=== PATIENT | female | born 1940 | race Caucasian/White ===

== ENCOUNTER 2019-09-26 22:54 | Observation (INO) | payer OTHER ==
[2019-09-26 23:37] LABS: Absolute Lymphocytes (CBC) 1.3 K/uL (0.7-4.9); Hematocrit 36.4 % (36.0-45.0); Lymphocytes % 21.2 % (15.3-44.8); MPV 7.7 fL (7.6-11.3); RBC Red Blood Cell Count 3.83 M/uL (3.86-4.86)
[2019-09-26 23:38] LABS: Protime INR 1.06
[2019-09-26 23:50] LABS: ALT/SGPT 23 U/L (12-78); AST/SGOT 25 U/L (15-37); Albumin 3.6 g/dL (3.4-5.0); Alkaline Phosphatase 73 U/L (45-117); BUN Blood Urea Nitrogen 11 mg/dL (7-18); Bicarbonate 27 mmol/L (21-32); Bilirubin Direct 0.2 mg/dL (0-0.2); Bilirubin Total 0.5 mg/dL (0.2-1.0); Glucose Level 80 mg/dL (74-106); Lipase 116 U/L (73-393); Magnesium 2.2 mg/dL (1.8-2.4); NT PRO-BNP 1595 pg/mL (<450); Potassium 3.6 mmol/L (3.5-5.1); Protein, Total 7.2 g/dL (6.4-8.2); Sodium Level 143 mmol/L (136-145); Troponin (Emerg Dept Use Only) < 0.02 ng/mL (0.0-0.045)
[2019-09-27] MEDS ORDERED: ASPIRIN 81 MG CHEWABLE TABLET ONE (00:14)
[2019-09-27] MEDS ORDERED: MORPHINE 2 MG/ML SYR ONE (00:15)
[2019-09-27] MEDS ORDERED: PANTOPRAZOLE 40 MG INJ ONE (00:15)
[2019-09-27 01:12] LABS: Urine Blood TRACE (NEG); Urine Glucose NEGATIVE (NEG); Urine Protein NEGATIVE (NEG); Urine pH 8.5 (5.0-7.0)
[2019-09-27] MEDS ORDERED: MORPHINE 4 MG/ML SYR IV PRN (02:33)
[2019-09-27] MEDS ORDERED: ACETAMINOPHEN 500 MG TAB PO PRN (02:33)
[2019-09-27] MEDS ORDERED: ALPRAZOLAM 0.25 MG TABLET PO PRN (02:33)
[2019-09-27] MEDS ORDERED: CEFTRIAXONE/SWI 1gm 1 GM/10 ML SYR ONE (02:37)
--- NOTE | 2019-09-27 02:42 | ER ---
Nurse's Notes [facility] Name: Marisela Sullivan Age: 79 yrs Sex: Female : 1940 Arrival Date: 09/26/2019 Time: 22:55 Bed 14 Private MD: Diagnosis: Chest pain, unspecified;Cholecystitis Presentation: 09/25 23:10 Chief complaint: Patient states: she began having pressure in her chest around 1900 aa1 tonight and it then moved to her diaphragm area and radiates to her back. Reports she has a hx of gallstones and is supposed to have it removed and is not sure if that's what causing it since she ate pizza tonight. Denies SOB or N/V. Coronavirus screen: The patient has NOT traveled to a country currently being monitored by the CDC within the last 14 days. Proceed with normal triage procedures. Ebola Screen: No symptoms or risks identified at this time. Initial Sepsis Screen: Does the patient meet any 2 criteria? No. Patient's initial sepsis screen is negative. Does the patient have a suspected source of infection? No. Patient's initial sepsis screen is negative. Risk Assessment: Do you want to hurt yourself or someone else? Patient reports no desire to harm self or others. Onset of symptoms was September 26, 2019 at 21:00. Care prior to arrival: None. Activity prior to arrival: None. 23:10 Method Of Arrival: Ambulatory aa1 23:10 Acuity: RIYA 3 aa1 Historical: - Allergies: 23:51 Norvasc; aa1 - Home Meds: 23:51 Advair Diskus 250-50 mcg/dose Inhl dsdv 1 puff 2 times per day [Active]; Eliquis Oral aa1 [Active]; verapamil 240 mg Oral TbER 1 tab twice a day [Active]; - PMHx: 23:51 Asthma; Atrial Fib; Hypertension; gallstones; COPD; aa1 - PSHx: 23:51 Hysterectomy; aa1 - Immunization history:: Flu vaccine is not up to date. - Social history:: Smoking status: Patient denies any tobacco usage or history of. Screenin:10 Abuse screen: Denies threats or abuse. Denies injuries from another. Nutritional aa1 screening: No deficits noted. Tuberculosis screening: No symptoms or risk factors identified. Fall Risk None identified. Assessment: 23:10 General: Appears in no apparent distress. comfortable, Behavior is calm, cooperative, aa1 appropriate for age. Pain: Complains of pain in diaphragm Pain radiates to back Pain currently is 7 out of 10 on a pain scale. Quality of pain is described as pressure, Pain began 3 hours ago. Is continuous. Neuro: Level of Consciousness is awake, alert, obeys commands, Oriented to person, place, time, situation, Moves all extremities. Full function Speech is normal. Cardiovascular: Reports chest pain, Denies diaphoresis, lightheadedness, nausea, palpitations, shortness of breath, Heart tones S1 S2 present Capillary refill < 3 seconds Patient's skin is warm and dry. Chest pain is located in epigastric area radiates back began 3 hours prior to arrival episodes are continuous. Respiratory: Airway is patent Respiratory effort is even, unlabored, Respiratory pattern is regular, symmetrical. GI: Patient currently denies diarrhea, nausea, vomiting. : No signs and/or symptoms were reported regarding the genitourinary system. EENT: No signs and/or symptoms were reported regarding the EENT system. Derm: Skin is intact, is healthy with good turgor, Skin is pink, warm \T\ dry. Musculoskeletal: Capillary refill < 3 seconds. 09/26 00:15 Reassessment: Patient appears in no apparent distress at this time. Patient and/or aa1 family updated on plan of care and expected duration. Pain level reassessed. Patient is alert, oriented x 3, equal unlabored respirations, skin warm/dry/pink. Awaiting test results. 01:10 Reassessment: Patient appears in no apparent distress at this time. Patient and/or aa1 family updated on plan of care and expected duration. Pain level reassessed. Patient is alert, oriented x 3, equal unlabored respirations, skin warm/dry/pink. Awaiting CT results Patient states feeling better. Patient states symptoms have improved. 02:12 Reassessment: Patient appears in no apparent distress at this time. Patient and/or aa1 family updated on plan of care and expected duration. Pain level reassessed. Patient is alert, oriented x 3, equal unlabored respirations, skin warm/dry/pink. Awaiting CT results. 03:00 Reassessment: Patient appears in no apparent distress at this time. Patient and/or aa1 family updated on plan of care and expected duration. Pain level reassessed. Patient is alert, oriented x 3, equal unlabored respirations, skin warm/dry/pink. Pt to be admitted to ER hold. 15:41 Reassessment: patient and family decided to go home because of insurance issue. dr brendon francis and dr keen are aware. Vital Signs: 09/25 23:10 BP 156 / 82; Pulse 77; Resp 20; Temp 98.2; Pulse Ox 100% on R/A; Weight 58.97 kg; aa1 Height 5 ft. 2 in. (157.48 cm); Pain 7/10; 23:45 BP 156 / 82 LA; mt 23:45 BP 152 / 82 RA; mt 0312 00:49 BP 131 / 71; Pulse 71; Resp 18; Pulse Ox 97% on R/A; aa1 01:10 BP 146 / 70; Pulse 81; Resp 20; Pulse Ox 97% on R/A; Pain 3/10; aa1 02:12 BP 143 / 59; Pulse 81; Resp 18; Pulse Ox 98% on R/A; Pain 0/10; aa1 03:00 BP 126 / 59; Pulse 66; Resp 18; Temp 97.9; Pulse Ox 97% on R/A; Pain 0/10; aa1 09/25 23:10 Body Mass Index 23.78 (58.97 kg, 157.48 cm) [facility] ED Course: 09/25 22:55 Patient arrived in ED. jg7 23:01 Patient placed in an exam room, on a stretcher. aa1 23:08 Hank Felix PA is PHCP. cp 23:08 Hank Renya MD is Attending Physician. cp 23:10 Patient maintains SpO2 saturation greater than 95% on room air. aa1 23:10 Patient has correct armband on for positive identification. Bed in low position. Call [facility] light in reach. campus monitor on. Pulse ox on. NIBP on. Warm blanket given. 23:29 Patti Jones, BRYNN is Primary Nurse. aa1 23:30 Missed attempt(s): 22 gauge in right antecubital area. mt 23:33 EKG done, by ED staff, reviewed by Hank Reyna MD. Inserted saline lock: 20 gauge in mt right antecubital area, using aseptic technique. Blood collected. 23:49 Triage completed. aa1 0312 02:40 Fer Max MD is Hospitalizing Provider. cp 03:00 No provider procedures requiring assistance completed. aa1 15:39 IV discontinued, intact, bleeding controlled, No redness/swelling at site. Pressure mg2 dressing applied. Administered Medications: 00:00 Drug: morphine 2 mg Route: IVP; Site: right antecubital; aa1 00:30 Follow up: Response: No adverse reaction; Pain is decreased; RASS: Alert and Calm (0) aa1 00:00 Drug: ProTONIX 40 mg Route: IVP; Site: right antecubital; aa1 01:00 Follow up: Response: No adverse reaction; Marked relief of symptoms aa1 02:38 Drug: Rocephin 1 grams Route: IV; Rate: calculated rate; Site: right antecubital; aa1 03:43 Follow up: IV Status: Completed infusion; IV Intake: 10ml aa1 05:48 Not Given (Patient Refused): Aspirin Chewable Tablet 324 mg PO once; 81 mg tablets x 4 aa1 Intake: 03:43 IV: 10ml; Total: 10ml. aa1 Outcome: 02:41 Decision to Hospitalize by Provider. cp 15:40 Discharged to home via wheelchair, with family. mg2 15:40 Condition: stable 15:40 Discharge instructions given to family, Instructed on discharge instructions, follow up and referral plans. medication usage, Demonstrated understanding of instructions, follow-up care, medications, Prescriptions given X 2. 15:42 Patient left the ED. mg2 Signatures: Patti Jones RN RN aa1 Hank Felix PA PA cp Thompson, Moriah ak Cam Kat RN RN mg2 Bonita Watt jg7 Corrections: (The following items were deleted from the chart) 05:47 00:00 Aspirin Chewable Tablet 324 mg PO aa1 aa1 15:40 03:00 Patient admitted, IV remains in place. aa1 mg2 : 03:00 Admitted to ER Hold. Please see [facility] for further documentation. aa1 mg2 15:41 03:00 Condition: stable aa1 mg2 15:41 03:00 Instructed on the need for admit, Demonstrated understanding of instructions, aa1 mg2
--- NOTE | 2019-09-27 02:42 | EDPHYS ---
Physician Documentation [facility] Name: Marisela Sullivan Age: 79 yrs Sex: Female : 1940 Arrival Date: 09/26/2019 Time: 22:55 Bed 14 Private MD: ED Physician Hank Reyna HPI: 09/25 23:25 This 79 yrs old Female presents to ER via Ambulatory with complaints of Chest cp Pain. 23:25 The patient or guardian reports chest pain that is located primarily in the substernal cp area. 23:25 Onset: at 19:00. Duration: The patient or guardian reports a single episode, that is cp still ongoing, but improving, pain now in epigastric lower chest area and radiates to back. Severity of pain: in the emergency department the pain has improved mildly. Historical: - Allergies: 23:51 Norvasc; aa1 - Home Meds: 23:51 Advair Diskus 250-50 mcg/dose Inhl dsdv 1 puff 2 times per day [Active]; Eliquis Oral aa1 [Active]; verapamil 240 mg Oral TbER 1 tab twice a day [Active]; - PMHx: 23:51 Asthma; Atrial Fib; Hypertension; gallstones; COPD; aa1 - PSHx: 23:51 Hysterectomy; aa1 - Immunization history:: Flu vaccine is not up to date. - Social history:: Smoking status: Patient denies any tobacco usage or history of. ROS: 23:35 Eyes: Negative for injury, pain, redness, and discharge. cp 23:35 Constitutional: Negative for body aches, chills, fever, poor PO intake. 23:35 ENT: Negative for drainage from ear(s), ear pain, sore throat, difficulty swallowing, difficulty handling secretions. 23:35 Cardiovascular: Positive for chest pain, Negative for edema, palpitations. 23:35 Respiratory: Negative for cough, shortness of breath, wheezing. 23:35 Abdomen/GI: Positive for abdominal pain, of the epigastric area, Negative for vomiting, diarrhea, constipation, black/tarry stool, rectal bleeding. 23:35 Back: Positive for radiated pain. 23:35 Neuro: Negative for altered mental status, headache, weakness. 23:35 All other systems are negative. Exam: 23:38 Constitutional: The patient appears in no acute distress, alert, awake, cp non-diaphoretic, non-toxic, well developed, well nourished. 23:38 Head/Face: Normocephalic, atraumatic. cp 23:38 Eyes: Periorbital structures: appear normal, Conjunctiva: normal, no exudate, no injection, Sclera: no appreciated abnormality, Lids and lashes: appear normal, bilaterally. 23:38 ENT: External ear(s): are unremarkable, Nose: is normal, Mouth: Lips: moist, Oral mucosa: pink and intact, moist, Posterior pharynx: is normal, airway is patent, no erythema, no exudate. 23:38 Neck: ROM/movement: is normal, is supple, without pain, no range of motions limitations, no nuchal rigidity. 23:38 Chest/axilla: Inspection: normal, Palpation: is normal, no crepitus, no tenderness. 23:38 Cardiovascular: Rate: normal, Rhythm: irregularly irregular, Edema: is not appreciated, JVD: is not appreciated. 23:38 Respiratory: the patient does not display signs of respiratory distress, Respirations: normal, no use of accessory muscles, no retractions, labored breathing, is not present, Breath sounds: are clear throughout, no decreased breath sounds, no stridor, no wheezing. 23:38 Abdomen/GI: Inspection: abdomen appears normal, Bowel sounds: active, all quadrants, Palpation: soft, in all quadrants, mild abdominal tenderness, in the epigastric area, rebound tenderness, is not appreciated, voluntary guarding, is elicited in the epigastric area. 23:38 Back: pain, that is mild, of the mid back area. 23:38 Skin: no rash present. 23:38 Neuro: Orientation: to person, place \T\ time. Mentation: is normal, Motor: moves all fours, strength is normal. Vital Signs: 23:10 BP 156 / 82; Pulse 77; Resp 20; Temp 98.2; Pulse Ox 100% on R/A; Weight 58.97 kg; aa1 Height 5 ft. 2 in. (157.48 cm); Pain 7/10; 23:45 BP 156 / 82 LA; mt 23:45 BP 152 / 82 RA; mt 03/12 00:49 BP 131 / 71; Pulse 71; Resp 18; Pulse Ox 97% on R/A; aa1 01:10 BP 146 / 70; Pulse 81; Resp 20; Pulse Ox 97% on R/A; Pain 3/10; aa1 02:12 BP 143 / 59; Pulse 81; Resp 18; Pulse Ox 98% on R/A; Pain 0/10; aa1 03:00 BP 126 / 59; Pulse 66; Resp 18; Temp 97.9; Pulse Ox 97% on R/A; Pain 0/10; aa1 03 23:10 Body Mass Index 23.78 (58.97 kg, 157.48 cm) aa MDM: 09/25 23:09 Patient medically screened. percy 23:35 Differential diagnosis: abnormal EKG, acute myocardial infarction, cholecystitis, cp Cholelithiasis gastritis, pancreatitis, pneumonia, pneumothorax, pulmonary embolus, stable angina, thoracic aortic disection, unstable angina. 09/26 02:45 Data reviewed: vital signs, nurses notes, lab test result(s), EKG, radiologic studies, cp CT scan, plain films, I have discussed the patient's presentation/case with the attending Emergency Department Physician; and as a result, I will admit patient. 02:45 The patient was given aspirin in the Emergency Department. cp 09/25 23:08 Order name: Basic Metabolic Panel cp 09/25 23:08 Order name: CBC with Diff cp 09/25 23:08 Order name: LFT's cp 09/25 23:08 Order name: Magnesium cp 09/25 23:08 Order name: NT PRO-BNP cp 09/25 23:08 Order name: PT-INR cp 09/25 23:08 Order name: Troponin (emerg Dept Use Only) cp 09/25 23:27 Order name: Lipase cp 09/25 23:41 Order name: CBC with Automated Diff; Complete Time: 00:19 EDMS 09/26 00:19 Interpretation: Normal except: RBC 3.83; EOSINOPHIL % 6.8. cp 09/25 23:41 Order name: Protime (+INR); Complete Time: 00:19 EDMS 09/25 23:50 Order name: Basic Metabolic Panel; Complete Time: 00:19 EDMS 09/25 23:50 Order name: Liver (Hepatic) Function; Complete Time: 00:19 EDMS 09/25 23:50 Order name: Troponin (Emerg Dept Use Only); Complete Time: 00:19 EDMS 09/26 00:19 Interpretation: Within normal limits: TROPED < 0.02. cp 09/25 23:50 Order name: NT PRO-BNP; Complete Time: 00:19 EDMS 09/25 23:08 Order name: XRAY Chest (1 view) cp 09/25 23:29 Order name: CT Aorta for Dissection cp 09/25 23:51 Order name: Magnesium; Complete Time: 00:19 EDMS 09/25 23:51 Order name: Lipase; Complete Time: 00:19 EDMS 09/26 00:39 Order name: Urine Dipstick--Ancillary (enter results) mw2 09/26 01:12 Order name: Urine Dipstick-Ancillary; Complete Time: 02:20 EDMS 09/26 02:20 Interpretation: Normal except: UBLD TRACE; UPH 8.5; UESTR 1+. cp 09/26 03:38 Order name: Troponin I; Complete Time: 11:51 EDMS 09/26 05:50 Order name: CBC with Automated Diff; Complete Time: 11:51 EDMS 09/26 06:01 Order name: Basic Metabolic Panel; Complete Time: 11:51 EDMS 09/26 06:01 Order name: Liver (Hepatic) Function; Complete Time: 11:51 EDMS 09/26 06:04 Order name: Protime (+INR); Complete Time: 11:51 EDMS 09/26 06:04 Order name: PTT, Activated Partial Thromb; Complete Time: 11:51 EDMS 09/26 08:10 Order name: RAD; Complete Time: 11:51 EDMS 09/26 10:02 Order name: Troponin (emerg Dept Use Only) mg2 09/26 10:37 Order name: Troponin (Emerg Dept Use Only); Complete Time: 11:51 EDMS 09/26 11:25 Order name: CT; Complete Time: 13:46 EDMS 09/25 23:08 Order name: EKG; Complete Time: 23:09 cp 09/25 23:08 Order name: Cardiac monitoring; Complete Time: 23:13 cp 09/25 23:08 Order name: EKG - Nurse/Tech; Complete Time: 23:13 cp 09/25 23:08 Order name: IV Saline Lock; Complete Time: 23:27 cp 03/11 23:08 Order name: Labs collected and sent; Complete Time: 23:27 cp 09/25 23:08 Order name: O2 Per Protocol; Complete Time: 23:13 cp 09/25 23:08 Order name: O2 Sat Monitoring; Complete Time: 23:13 cp 09/25 23:27 Order name: Blood Pressure Recheck: bilateral upper extremity; Complete Time: 23:45 cp 09/26 03:46 Order name: Misc. Order: stop eliquis; Complete Time: 03:47 cp Administered Medications: 00:00 Drug: morphine 2 mg Route: IVP; Site: right antecubital; aa1 00:30 Follow up: Response: No adverse reaction; Pain is decreased; RASS: Alert and Calm (0) aa1 00:00 Drug: ProTONIX 40 mg Route: IVP; Site: right antecubital; aa1 01:00 Follow up: Response: No adverse reaction; Marked relief of symptoms aa1 02:38 Drug: Rocephin 1 grams Route: IV; Rate: calculated rate; Site: right antecubital; aa1 03:43 Follow up: IV Status: Completed infusion; IV Intake: 10ml aa1 05:48 Not Given (Patient Refused): Aspirin Chewable Tablet 324 mg PO once; 81 mg tablets x 4 aa1 Disposition: 09/27 07:28 Co-signature as Attending Physician, Hank Reyna MD I agree with the assessment and percy plan of care. Disposition: 09/27/19 02:41 Hospitalization ordered by Fer Max for Inpatient Admission. Preliminary diagnosis are Chest pain, unspecified, Cholecystitis. - Bed requested for [facility] ER HOLD. - Status is Inpatient Admission. mg2 - Condition is Stable. - Problem is new. - Symptoms have improved. Signatures: Dispatcher [employer] Johana Salmon RN RN dw Patti Jones RN RN aa1 Hank Reyna MD MD cha Attema, Lee, RESEARCH EDITOR-C RESEARCH EDITOR-Cla1 Hank Felix PA PA cp Gardose, Michele, RN RN mg2 Corrections: (The following items were deleted from the chart) 09/26 00:19 00:19 Normal except: RBC 3.83. cp cp 02:52 02:41 Hospitalization Ordered by Fer Max MD for Inpatient Admission. Preliminary dw diagnosis is Chest pain, unspecified; Cholecystitis. Bed requested for Telemetry/MedSurg (Inpatient). Status is Inpatient Admission. Condition is Stable. Problem is new. Symptoms have improved. cp 06:50 05:47 Aspirin Chewable Tablet 324 mg PO once; 81 mg tablets x 4 ordered. aa1 cp 15:42 02:52 09/27/2019 02:41 Hospitalization Ordered by Fer Max MD for Inpatient mg2 Admission. Preliminary diagnosis is Chest pain, unspecified; Cholecystitis. Bed requested for [facility] ER HOLD. Status is Inpatient Admission. Condition is Stable. Problem is new. Symptoms have improved. dw
[2019-09-27] MEDS ORDERED: Levofloxacin500mg IV 500 MG/100 ML BAG IV SCH (03:00)
[2019-09-27 05:30] VITALS: BMI 23.0
[2019-09-27 05:41] LABS: Absolute Lymphocytes (CBC) 0.8 K/uL (0.7-4.9); Basophils % 0.6 % (0-1.3); Hematocrit 33.2 % (36.0-45.0); Lymphocytes % 12.1 % (15.3-44.8); MPV 7.7 fL (7.6-11.3); RBC Red Blood Cell Count 3.49 M/uL (3.86-4.86)
[2019-09-27 05:43] LABS: Protime INR 1.1
[2019-09-27 05:52] LABS: ALT/SGPT 54 U/L (12-78); AST/SGOT 77 U/L (15-37); Albumin 3.3 g/dL (3.4-5.0); Alkaline Phosphatase 81 U/L (45-117); BUN Blood Urea Nitrogen 9 mg/dL (7-18); Bicarbonate 27 mmol/L (21-32); Bilirubin Direct 0.2 mg/dL (0-0.2); Bilirubin Total 0.4 mg/dL (0.2-1.0); Glucose Level 91 mg/dL (74-106); Potassium 3.5 mmol/L (3.5-5.1); Protein, Total 6.4 g/dL (6.4-8.2); Sodium Level 141 mmol/L (136-145)
--- NOTE | 2019-09-27 07:10 | P.HP ---
Certification for Inpatient Patient admitted to: Inpatient With expected LOS: >2 Midnights Patient will require the following post-hospital care: None Practitioner: I am a practitioner with admitting privileges, knowledge of patient current condition, hospital course, and medical plan of care. Services: Services provided to patient in accordance with Admission requirements found in Title 42 Section 412.3 of the Code of Federal Regulations Patient History Date of Service: 09/27/19 Reason for admission: Chest pain rule out acute coronary syndrome; acute cholecystitis History of Present Illness: Patient is an 79 year female who came into the hospital with chest discomfort. Patient has a history of cholelithiasis and has been working up cardiac clearance with weight loss physician in [place]. She was scheduled to get an echocardiogram in a week. However she started having severe pain so she came into our ER. In the emergency room her workup revealed that she had findings of gallbladder wall distension, acute cholecystitis, gallstone at the neck of the gallbladder. She has a history of atrial fibrillation and she is taking Eliquis as her anticoagulant. She will probably need to be off of this for 3- 4 days prior to surgical intervention. At this time, will get Cardiology consultation for cardiac clearance. Will get General surgery consultation to arrange for laparoscopic cholecystectomy. In the meantime, will continue with IV antibiotic therapy and pain control. Monitor her labs closely. She does not have choly does a lithiasis. If her pain changes or her LFTs elevate we may need to get an MRCP at that time. Allergies amlodipine [From Norvas] Allergy (Verified 10/15/15 08:50) Nausea/Vomiting NKDA Allergy (Uncoded 08/16/15 12:59) Unknown norelco Allergy (Uncoded 03/28/16 06:45) Unknown Home Medications: Bimatoprost [Lumigan Opthalmic Drops] 1 drops OP DAILY 10/13/15 Cephalexin 250 mg PO TID 10/13/15 Fluticasone/Salmeterol [Advair 250-50 Diskus] 1 each IH BID 10/13/15 Verapamil HCl [Verapamil ER] 240 mg PO BID 10/13/15 Zolpidem Tartrate 10 mg PO BEDTIME 10/13/15 Amoxicillin/Potassium Clav [Augmentin 875-125 Tablet] 1 each PO BID #20 tablet 10/15/15 Docusate [Colace Cap] 100 mg PO DAILY #30 cap 10/15/15 Hydrocort Acetate Suppos [Anucort-Hc Suppository*] 25 mg SD DAILY #10 supp 10/14 Pantoprazole [Protonix Tab] 40 mg PO BID #60 tab 10/15/15 - Past Medical/Surgical History Has patient received pneumonia vaccine in the past: Yes Diabetic: No -: AFIB -: HTN -: ASTHMA -: COPD -: HYSTERECTOMY - Family History Mother Medical History: Cancer Notes: breast cancer Sister Medical History: Cancer Notes: ovarian cancer - Social History Smoking Status: Former smoker Alcohol use: No CD- Drugs: No Caffeine use: Yes Place of Residence: Home Review of Systems 10-point ROS is otherwise unremarkable Physical Examination - Vital Signs Temperature: 99 F Blood Pressure: 140/70 Pulse: 99 Respirations: 16 Pulse Ox (%): 100 - Physical Exam General: Alert, In no apparent distress, Oriented x3 HEENT: Atraumatic, PERRLA, Mucous membr. moist/pink, EOMI, Sclerae nonicteric Neck: Supple, 2+ carotid pulse no bruit, No LAD, Without JVD or thyroid abnormality Respiratory: Clear to auscultation bilaterally, Normal air movement Cardiovascular: No murmurs, Irregular heart rate/rhythm Gastrointestinal: Normal bowel sounds, Soft and benign, Non-distended, No rebound, No guarding, Tenderness Musculoskeletal: No clubbing, No swelling, No tenderness Integumentary: No rashes Neurological: Normal gait, Normal speech, Normal strength at 5/5 x4 extr, Normal tone, Sensation intact, Cranial nerves 3-12 intact, Normal affect Lymphatics: No axilla or inguinal lymphadenopathy - Studies Laboratory Data (last 24 hrs) 09/27/19 02:55: Troponin I < 0.02 09/26/19 23:27: Lipase Cancelled 09/26/19 23:25: PT 12.5, INR 1.06 09/26/19 23:25: WBC 6.2, Hgb 12.3, Hct 36.4, Plt Count 268 09/26/19 23:25: Sodium 143, Potassium 3.6, BUN 11, Creatinine 0.79, Glucose 80, Magnesium 2.2, Total Bilirubin 0.5, AST 25, ALT 23, Alkaline Phosphatase 73, Lipase 116 Assessment & Plan - Problems (Diagnosis) (1) History of atrial fibrillation Current Visit: Yes Status: Acute (2) Acute cholecystitis Current Visit: Yes Status: Acute (3) History of hypertension Current Visit: Yes Status: Acute (4) History of COPD Current Visit: Yes Status: Acute (5) History of asthma Current Visit: Yes Status: Acute - Plan 1. Continue with IV hydration 2. Continue with IV antibiotics 3. Continue with pain control 4. NPO 5. General surgery consultation; patient is on anti coagulation so will hold surgery for 3-4 days. She last took the Eliquis on September 24. At this time she has gone almost 36 hr without the Eliquis. We may be able to proceed with surgery Tuesday morning. 6. Serial H&H, and we will monitor CBC, BMP, LFTs and lipase along with electrolytes. 7. Cardiology consultation for cardiac clearance 8. Echocardiogram 9. GI and DVT prophylaxis Discharge Plan: Home Plan to discharge in: Greater than 2 days - Advance Directives Does patient have a Living Will: Yes Does patient have a Durable POA for Healthcare: No - Code Status/Comfort Care Code Status Assessed: Yes Code Status: Full Code Critical Care: No Time Spent Managing PTS Care (In Minutes): 45
[2019-09-27] MEDS ORDERED: MORPHINE 4 MG/ML SYR ONE (07:32)
[2019-09-27] MEDS ORDERED: METRONIDAZOLE 500mg IVPB 500 MG/100 ML BAG IV ONE ×2 (07:32→13:54)
[2019-09-27] MEDS: METRONIDAZOLE 500mg IVPB 500 MG/100 ML BAG IV SCH ×2 (08:00→12:00)
--- NOTE | 2019-09-27 08:07 | RAD REPORT ---
EXAM DESCRIPTION: Beatrice Single View09/26/2019 11:34 pm CLINICAL HISTORY: Chest pain COMPARISON: 2015 FINDINGS: The lungs appear clear of acute infiltrate. The heart is mildly to moderately enlarged IMPRESSION: No acute abnormalities displayed
--- NOTE | 2019-09-27 08:51 | EKG ---
Test Date: 2019-09-26 Test Time: 23:11:18 Laundry Machine Tender: BOBBI MEASUREMENT RESULTS: Intervals: Rate: 86 SC: QRSD: 80 QT: 296 QTc: 354 [place]: P: SC: QRS: 30 T: 259 INTERPRETIVE STATEMENTS: Atrial fibrillation with premature ventricular or aberrantly conducted complexes Nonspecific ST and T wave abnormality, probably digitalis effect Abnormal ECG Compared to ECG 03/28/2016 03:23:20 Ventricular premature complex(es) now present ST (T wave) deviation now present T-wave abnormality no longer present Electronically Signed On 09-27-19 08:50:22 CDT by Peewee Luis
[2019-09-27] MEDS ORDERED: ENOXAPARIN 40 MG/0.4 ML SQ SCH (09:00)
[2019-09-27] MEDS ORDERED: ASPIRIN EC 81 MG TAB PO SCH (09:00)
[2019-09-27] MEDS ORDERED: INFLUENZA VACCINE (for 3y+) 0.5 ML DOSE IMVAC ONE ×2 (09:00→15:03)
[2019-09-27] MEDS ORDERED: METOPROLOL TAR 50 MG TAB PO SCH (09:00)
[2019-09-27] MEDS ORDERED: METOPROLOL TAR 50 MG TAB ONE (10:37)
[2019-09-27] MEDS ORDERED: ASPIRIN EC 81 MG TAB PO ONE (10:37)
--- NOTE | 2019-09-27 10:47 | RAD REPORT ---
EXAM DESCRIPTION: CT - Angio Aorta For Dissection - 09/27/2019 6:30 am CLINICAL HISTORY: The patient is 79 years old and is Female; back pain;Chest pain TECHNIQUE: Axial computed tomographic angiography images of the chest, abdomen and pelvis with intra venous contrast. Sagittal and coronal reformatted images were created and reviewed. This CT exam was performed using one or more of the following dose reduction techniques: automated exposure cont rol, adjustment of the mA and/or kV according to patient size, and/or use of iterative reconstruction technique. MIP reconstructed images were created and reviewed. COMPARISON: No relevant prior studies available. FINDINGS: VASCULATURE: AORTA: No acute findings. No aortic aneurysm. No dissection. PULMONARY ARTERIES: There are no obvious filling defects identified within the pulmonary arterie s to suggest pulmonary embolism. GREAT VESSELS OF AORTIC ARCH: No acute findings. No dissection. No arterial occlusion or sig nificant stenosis. CELIAC TRUNK AND MESENTERIC ARTERIES: No acute findings. No occlusion or significant stenosis. RENAL ARTERIES: No acute findings. No occlusion or significant stenosis. ILIAC ARTERIES: No acute findings. No occlusion or significant stenosis. CHEST: LUNGS: Unremarkable. No mass. No consolidation. PLEURAL SPACE: Unremarkable. No significant effusion. No pneumothorax. HEART: The heart is enlarged, specifically the biatrial enlargement. No significant pericardia l effusion. ABDOMEN: LIVER: Unremarkable. No mass. GALLBLADDER AND BILE DUCTS: The gallbladder is distended with several calcified gallstones in th e neck of the gallbladder. Suggestion of mild pericholecystic inflammation is noted. No ductal dila tion. PANCREAS: Unremarkable. No ductal dilation. No mass. SPLEEN: Unremarkable. No splenomegaly. ADRENALS: Unremarkable. No mass. KIDNEYS AND URETERS: Left intrarenal calcifications are present. There is no hydronephrosis or h ydroureter of either kidney. Prominent bilateral renal pelves is noted. No obstructing renal or urete ral calculus is seen. No solid mass. STOMACH AND BOWEL: The stomach is well distended with food contents and air. The small bowel is normal in caliber. Stool is present throughout colon. Scattered colonic diverticula are noted without surrounding inflammation. There is no bowel obstruction. No mucosal thickening. PELVIS: APPENDIX: The appendix is normal in caliber without surrounding inflammation. BLADDER: Unremarkable. No mass. REPRODUCTIVE: The patient is status post hysterectomy. CHEST, ABDOMEN and PELVIS: INTRAPERITONEAL SPACE: Unremarkable. No significant fluid collection. No free air. BONES/JOINTS: Minimal degenerative change of the lower lumbar spine is present. No acute fract ure. No dislocation. SOFT TISSUES: Unremarkable. LYMPH NODES: Unremarkable. No enlarged lymph nodes. IMPRESSION: 1. No evidence of aortic aneurysm or dissection. 2. No evidence of pulmonary embolism. 3. Cholelithiasis with findings concerning for acute cholecystitis. Electronically signed by: Ellie Jimenez MD 09/27/2019 1:43 AM CDT Due to temporary technical issues with the PACS/Fluency reporting system, reports are being signed by the in house radiologist as a courtesy to ensure prompt reporting. The interpreting radiologist is f ully responsible for the content of the report.
--- NOTE | 2019-09-27 11:12 | P.DS ---
Admission Date: 09/27/19 Discharge Date: 09/27/19 Disposition: ROUTINE DISCHARGE Discharge Condition: FAIR Reason for Admission: Chest pain rule out acute coronary syndrome; acute cholecystitis Brief History of Present Illness: History of Present Illness: Patient is an 79 year female who came into the hospital with chest discomfort. Patient has a history of cholelithiasis and has been working up cardiac clearance with program counselor in [place]. She was scheduled to get an echocardiogram in a week. However she started having severe pain so she came into our ER. In the emergency room her workup revealed that she had findings of gallbladder wall distension, acute cholecystitis, gallstone at the neck of the gallbladder. She has a history of atrial fibrillation and she is taking Eliquis as her anticoagulant. She will probably need to be off of this for 3- 4 days prior to surgical intervention. At this time, will get Cardiology consultation for cardiac clearance. Will get General surgery consultation to arrange for laparoscopic cholecystectomy. In the meantime, will continue with IV antibiotic therapy and pain control. Monitor her labs closely. She does not have choly does a lithiasis. If her pain changes or her LFTs elevate we may need to get an MRCP at that time. Hospital Course: Patient admitted for chest pain as well as nausea vomiting, CT angio shows no evidence of aortic dissection but finding of cholelithiasis. Patient was ruled out for acute coronary syndrome with negative sets of cardiac enzymes. Surgery team was discussed with plan was for patient to a hold Eliquis for 3 days prior to surgery. However patient's family 1 radiograph patient his arms nor been accepted DM. Case management discuss with an advice patient insurance profile for male observation stay. Given the patient has been ruled out for acute coronary syndrome. It was felt no need for patient to stay in the hospital for the next 3 days but can be discharged follow up with surgery as outpatient as already scheduled for the laparoscopic cholecystectomy. Patient is tolerating p.o. well at this time Vital Signs/Physical Exam: Temp Pulse Resp BP Pulse Ox 99 F 89 16 141/56 H 98 09/27/19 08:00 09/27/19 08:00 09/27/19 08:00 09/27/19 08:00 09/27/19 08:00 General: Alert, In no apparent distress, Oriented x3 HEENT: Atraumatic, Normocephalic Neck: Supple, 2+ carotid pulse no bruit Respiratory: Clear to auscultation bilaterally, Normal air movement Cardiovascular: No edema, Normal pulses, Regular rate/rhythm, Normal S1 S2 Gastrointestinal: Normal bowel sounds, Soft and benign, Non-distended, No tenderness Neurological: Normal speech, Normal strength at 5/5 x4 extr Laboratory Data at Discharge: WBC 6.7 K/uL (4.3-10.9) 09/27/19 05:16 Hgb 11.1 g/dL (12.0-15.0) L 09/27/19 05:16 Hct 33.2 % (36.0-45.0) L 09/27/19 05:16 Plt Count 242 K/uL (152-406) 09/27/19 05:16 PT 12.9 SECONDS (9.5-12.5) H 09/27/19 05:16 INR 1.10 09/27/19 05:16 APTT 32.4 SECONDS (24.3-36.9) 09/27/19 05:16 Sodium 141 mmol/L (136-145) 09/27/19 05:16 Potassium 3.5 mmol/L (3.5-5.1) 09/27/19 05:16 BUN 9 mg/dL (7-18) 09/27/19 05:16 Creatinine 0.60 mg/dL (0.55-1.3) 09/27/19 05:16 Glucose 91 mg/dL (74-106) 09/27/19 05:16 Magnesium 2.2 mg/dL (1.8-2.4) 09/26/19 23:25 Total Bilirubin 0.4 mg/dL (0.2-1.0) 09/27/19 05:16 AST 77 U/L (15-37) H 09/27/19 05:16 ALT 54 U/L (12-78) 09/27/19 05:16 Alkaline Phosphatase 81 U/L (45-117) 09/27/19 05:16 Troponin I < 0.02 ng/mL (0.0-0.045) 09/27/19 02:55 Lipase Cancelled 09/26/19 23:27 Home Medications: Bimatoprost [Lumigan Opthalmic Drops*] 1 drops OP DAILY 10/13/15 Fluticasone/Salmeterol [Advair 250-50 Diskus] 1 each IH BID 10/13/15 Docusate [Colace Cap*] 100 mg PO DAILY #30 cap 10/15/15 Pantoprazole [Protonix Tab*] 40 mg PO BID #60 tab 10/15/15 Levofloxacin [Levaquin] 250 mg PO DAILY #7 tablet 09/27/19 metroNIDAZOLE [Metronidazole] 500 mg PO TID #15 tablet 09/27/19 New Medications: Levofloxacin [Levaquin] 250 mg PO DAILY #7 tablet metroNIDAZOLE [Metronidazole] 500 mg PO TID #15 tablet Physician Review: Patient Assessed, Agree with Above Assessment and Plan Time spent managing pt's care (in minutes): 35
[2019-09-27 13:53] VITALS: BP 117/90; TEMP 98
--- NOTE | 2019-09-27 15:17 | ECHO ---
HEIGHT: 5 ft 3 in WEIGHT: 130 lb 0 oz DATE OF STUDY: 08/29/[address]: Fer Max MD 2-DIMENSIONAL: YES M.MODE: YES DOPPLER: YES COLOR FLOW: YES TDS: NO PORTABLE: NO DEFINITY: NO BUBBLE STUDY: NO DIAGNOSIS: CHEST PAIN CARDIAC HISTORY: CATHERIZATION: NO SURGERY: NO PROSTHETIC VALVE: NO PACEMAKER: NO MEASUREMENTS (cm) DIASTOLIC (NORMALS) SYSTOLIC (NORMALS) IVSd 0.9 (0.6-1.2) LA Diam 4.3 (1.9-4.0) LVEF 75% LVIDd 4.3 (3.5-5.7) LVIDs 2.4 (2.0-3.5) %FS 43% LVPWd 1.0 (0.6-1.2) Ao Diam 3.6 (2.0-3.7) 2 DIMENSIONAL ASSESSMENT: RIGHT ATRIUM: NORMAL LEFT ATRIUM: DILATED RIGHT VENTRICLE: NORMAL LEFT VENTRICLE: NORMAL TRICUSPID VALVE: NORMAL MITRAL VALVE: MITRAL ANNULAR CALCIFICATION PULMONIC VALVE: NORMAL AORTIC VALVE: NORMAL PERICARDIAL EFFUSION: NONE AORTIC ROOT: NORMAL LEFT VENTRICULAR WALL MOTION: NORMAL. DOPPLER/COLOR FLOW: MILD TRICUSPID REGURGITATION. COMMENTS: MILD TRICUSPID REGURGITATION NORMAL RIGHT VENTRICULAR SYSTOLIC PRESSURE. MITRAL ANNULAR CALCIFICATION. NORMAL LEFT VENTRICULAR SIZE AND FUNCTION. TECHNOLOGIST: ELVA SONG
[2019-09-27 16:39] VITALS: O2SAT 97
--- NOTE | 2019-09-28 05:31 | CON ---
Date of Consultation: 09/27/2019 Reason For Consultation: Cardiac clearance for gallbladder surgery. History Of Present Illness: Ms. Sullivan is an 79-year-old white woman. She has had a history of hy pertension, atrial fibrillation, COPD, and asthma. She normally sees Dr. Rutledge in [place] for her c ardiac care and has had a negative stress test by him in the past. She came in with right-sided ches t pain radiating to the center of the chest without any nausea, vomiting, diaphoresis, PND, orthopnea , pedal edema, palpitations, or syncope. It is felt that this is related to cholecystitis as she phillips s have gallstone. Dr. Santacruz was consulted and I was asked by him to see her for cardiac clearance. The patient has atrial fibrillation and she has been taking Eliquis. Her last dose was yesterday. Eliquis has been held. Past Medical History: As stated above. Allergies: INCLUDE NORVASC. Medications At Home: Include , Protonix, and inhalers. Review of Systems: Negative. Social History: Negative. Family History: Noncontributory. Physical Examination: Vital Signs: She was in atrial fibrillation with heart rate of 89 with vital signs that were stable otherwise. She was afebrile. Rest of her examination reportedly normal. Diagnostic Data: Showed atrial fibrillation by EKG. Chest x-ray was negative. Her BNP was 1595. Impression And Plan: Atypical chest pain. I think this is related to her gallstones. Has had a neg ative stress test by Dr. Rutledge in the past. Dr. Max has ordered echocardiogram on her. We will see what that shows prior to making further decisions, but she is cleared from my standpoint to go for s urgery she waits at least 48 hours after her last Eliquis dose before surgery is performed . Her blood pressure and her asthma seem to be well controlled at this point. We will continue to f jeff. The elevated BNP is nonspecific and may be related to her chronic atrial fibrillation. I dis cussed the case further with Dr. Max and Dr. Santacruz. NB/MODL Voice ID: [id number] Report ID: [id number]
[2019-09-28] MEDS ORDERED: Levofloxacin500mg IV 500 MG/100 ML BAG IV SCH (06:00)
== END 2019-09-27 15:40 | disposition home or self-care (01) ==
LOC: ER 22:54 → INTOOBSV 09-27 03:13 → ERHOLD 09-27 03:13
PROVIDERS: ADMIT Hospitalist; ATTEND Internal Medicine
DX: R07.89 Other chest pain (principal); K80.00 Calculus of gallbladder with acute cholecystitis without obstruction; I11.9 Hypertensive heart disease without heart failure; I48.20 Chronic atrial fibrillation, unspecified; I07.1 Rheumatic tricuspid insufficiency; J44.9 Chronic obstructive pulmonary disease, unspecified; Z79.01 Long term (current) use of anticoagulants; Z79.51 Long term (current) use of inhaled steroids; Z79.899 Other long term (current) drug therapy; Z87.891 Personal history of nicotine dependence
CPT/HCPCS: 96365; 93005; 93306; 85025 ×2; 80048 ×2; 36415; 83735; 85610 ×2; 80076 ×2; 85730; 81003; 84484 ×3; 83690; 83880; 71275; 74175; 71045; 96375; 99285; Q9967; C9113; J2270; J0696; G0378 ×2; Q2035

== ENCOUNTER 2020-10-03 23:55 | Observation (INO) | payer OTHER ==
--- OUTSIDE RECORDS SUMMARY | 2020-10-03 23:58 | XMS REPORT | Continuity of Care Document ---
:1940 Author Organization [facility] t Address [address] [place] [address] Care Team Providers Name Role Phone JOSÉ Attending Clinician Unavailable BRIAN Attending Clinician Unavailable JOSÉ Admitting Clinician Unavailable Problems This patient has no known problems. Allergies, Adverse Reactions, Alerts This patient has no known allergies or adverse reactions. Medications This patient has no known medications. Procedures This patient has no known procedures. Encounters Start End Encounter Admission Attending Care Care Encounter Source Date/Time Date/Time Type Type Clinicians Facility Department ID 2019-10-15 2019-10-[address] [facility] [id number] [place] 00:00:00 00:00:00 FILI [address] 2019-05-08 2019-05-08 Outpatient [facility] [id number] 00:00:00 00:00:00 DENA [address] 2019-04-26 2019-04-26 Outpatient [facility] [id number] 00:00:00 00:00:[address] DENA [address] Results This patient has no known results.
[2020-10-04 00:44] LABS: Absolute Lymphocytes (CBC) 1.3 K/uL (0.7-4.9); Basophils % 0.7 % (0-1.3); Hematocrit 37.5 % (36.0-45.0); Lymphocytes % 16.8 % (15.3-44.8); MPV 8.1 fL (7.6-11.3); RBC Red Blood Cell Count 3.98 M/uL (3.86-4.86)
[2020-10-04 00:48] LABS: Protime INR 0.99
[2020-10-04 01:05] LABS: ALT/SGPT 22 U/L (12-78); AST/SGOT 22 U/L (15-37); Albumin 3.7 g/dL (3.4-5.0); Alkaline Phosphatase 69 U/L (45-117); BUN Blood Urea Nitrogen 13 mg/dL (7-18); Bicarbonate 26 mmol/L (21-32); Bilirubin Direct 0.1 mg/dL (0-0.2); Bilirubin Total 0.5 mg/dL (0.2-1.0); Glucose Level 89 mg/dL (74-106); Magnesium 2.4 mg/dL (1.8-2.4); NT PRO-BNP 1218 pg/mL (<450); Potassium 3.3 mmol/L (3.5-5.1); Protein, Total 6.8 g/dL (6.4-8.2); Sodium Level 144 mmol/L (136-145); Troponin (Emerg Dept Use Only) < 0.02 ng/mL (0.0-0.045)
[2020-10-04 02:10] LABS: Urine Blood TRACE (NEG); Urine Glucose NEGATIVE (NEG); Urine Protein NEGATIVE (NEG); Urine pH 7.5 (5.0-7.0)
--- NOTE | 2020-10-04 02:13 | P.HP ---
Certification for Inpatient Patient admitted to: Observation With expected LOS: <2 Midnights Patient will require the following post-hospital care: None Practitioner: I am a practitioner with admitting privileges, knowledge of patient current condition, hospital course, and medical plan of care. Services: Services provided to patient in accordance with Admission requirements found in Title 42 Section 412.3 of the Code of Federal Regulations <EssieeliuJulien - Last Filed: 10/04/20 02:10> Patient History Date of Service: 10/04/20 Primary Care Provider: PAULETTE Reason for admission: Chest pain History of Present Illness: 80-year-old female with history of chronic atrial fibrillation, hypertension, hyperlipidemia presents emergency department for chest pain. Patient reports the chest pain began this evening, describes pain as sharp/stabbing to the left anterior chest wall, nonradiating associated with some mild shortness of breath, dizziness, nausea. Patient reports that she has had this pain in the past intermittently. Last stress test approximately 2 years prior but normal at that time. Patient has never had a heart catheterization previously. Troponin negative, chest x-ray unremarkable. BNP with some elevation. Patient not short of breath at all, reports that she stopped taking all of her home medications approximately 2 months ago because she has had their making her more groggy and now she says she feels much better. Patient used to be on Eliquis but has stopped taking this as well. Patient chest pain free at this time, ED provider wishes to admit for further evaluation and management. - Past Medical/Surgical History Diabetic: No -: AFIB -: HTN -: ASTHMA -: COPD -: Hyperlipidemia -: HYSTERECTOMY -: Cholecystectomy Psychosocial/ Personal History: Patient is retired, lives at home with her family - Family History Mother -: Cancer Notes: breast cancer Sister -: Cancer Notes: ovarian cancer - Social History Smoking Status: Never smoker Alcohol use: No CD- Drugs: No Caffeine use: Yes <Julien Platt - Last Filed: 10/04/20 02:10> Date of Service: 10/04/20 <Pérez Russell - Last Filed: 10/04/20 20:04> Allergies No Known Allergies Allergy (Unverified 10/04/20 04:28) Home Medications: Apixaban [Eliquis] 5 mg PO BID 10/04/20 Losartan Potassium 50 mg PO DAILY 10/04/20 Nitrofuran Macro [Macrodantin*] 50 mg PO DAILY 10/04/20 Verapamil HCl [Verapamil ER] 240 mg PO BID 10/04/20 Review of Systems Cardiovascular: Chest Pain, Light Headedness, As per HPI Gastrointestinal: Nausea Genitourinary: Dysuria, Frequency <Julien Platt - Last Filed: 10/04/20 02:10> Physical Examination - Physical Exam General: Alert, In no apparent distress HEENT: Atraumatic, PERRLA, Mucous membr. moist/pink Neck: Supple, 2+ carotid pulse no bruit, No LAD Respiratory: Clear to auscultation bilaterally, Normal air movement Cardiovascular: Regular rate/rhythm, Normal S1 S2 Gastrointestinal: Normal bowel sounds, No tenderness Musculoskeletal: No tenderness Integumentary: No rashes Neurological: Normal speech, Normal strength at 5/5 x4 extr, Normal tone, Normal affect - Studies Laboratory Data (last 24 hrs) 10/04/20 00:15: PT 11.4, INR 0.99 10/04/20 00:15: WBC 7.50, Hgb 12.8, Hct 37.5, Plt Count 227 10/04/20 00:15: Sodium 144, Potassium 3.3 L, BUN 13, Creatinine 0.57, Glucose 89, Magnesium 2.4, Total Bilirubin 0.5, AST 22, ALT 22, Alkaline Phosphatase 69 <Julien Platt - Last Filed: 10/04/20 02:10> - Studies Laboratory Data (last 24 hrs) 10/04/20 00:15: PT 11.4, INR 0.99 10/04/20 00:15: WBC 7.50, Hgb 12.8, Hct 37.5, Plt Count 227 10/04/20 00:15: Sodium 144, Potassium 3.3 L, BUN 13, Creatinine 0.57, Glucose 89, Magnesium 2.4, Total Bilirubin 0.5, AST 22, ALT 22, Alkaline Phosphatase 69 <Pérez Russell - Last Filed: 10/04/20 20:04> Assessment and Plan - Plan Assessment Chest pain rule out ACS Chronic Atrial fibrillation Hypertension COPD Plan Chest pain rule out ACS: Trend troponins, monitor on telemetry. Cardiology consult in place. Continue daily aspirin. Patient used to take for rapid male but has discontinued this medication on her own, patient will need to see Cardiology and overmedication options as she does not like taking medications. Patient also reports some dysuria/frequency stated that she has chronic UTIs in the past and at 1 point had to take an antibiotic every day, patient believes this was Macrobid. Urinalysis pending, will follow. DVT prophylaxis Lovenox 30 mg subcutaneous once daily. Chronic Atrial fibrillation: Patient was previously on Eliquis, discontinued this on her own. Will need to review cardiology and patient to determine if she would benefit from this/if she is willing to take the. Hypertension: Blood pressure mildly elevated, will review previous home medications and restart as appropriate. COPD: Stable. Discharge Plan: Home Plan to discharge in: 24 Hours - Advance Directives Does patient have a Living Will: Yes Does patient have a Durable POA for Healthcare: No - Code Status/Comfort Care Code Status Assessed: Yes (DNR) Time Spent Managing Pts Care (In Minutes): 55 <Julien Platt - Last Filed: 10/04/20 02:10> - Plan chest pain, r/o ACS trend troponin, monitor on tele cardio consulted <Pérez Russell - Last Filed: 10/04/20 20:04>
[2020-10-04] MEDS ORDERED: ASPIRIN 81 MG CHEWABLE TABLET ONE (02:25)
[2020-10-04] MEDS ORDERED: POTASSIUM 25 MEQ EFFERV TAB ONE (02:40)
[2020-10-04 02:46] LABS: Urine Bacteria >50 /HPF (<20); Urine Mucus 1+ /HPF (NONE SEEN); Urine RBC <5 /HPF (NONE SEEN)
--- NOTE | 2020-10-04 02:58 | EDPHYS ---
Physician Documentation [facility] Name: Marisela Sullivan Age: 80 yrs Sex: Female : 1940 Arrival Date: 10/04/2020 Time: 00:00 Bed 17 Private MD: ED Physician Manuel Daley HPI: 10/04 01:09 This 80 yrs old Female presents to ER via EMS with complaints of Chest Pain. mh7 01:09 The patient or guardian reports chest pain that is located primarily in the anterior mh7 chest wall, left. Onset: today. The pain radiates to the left arm. Associated signs and symptoms: Pertinent positives: nausea. 01:10 Associated signs and symptoms: Pertinent negatives: abdominal pain, cough, diaphoresis, mh7 dizziness, headache, lower extremity pain, lower extremity swelling, lightheadedness, near syncope, palpitations, recent travel, shortness of breath, syncope, vomiting. The chest pain is described as a heaviness. Duration: The patient or guardian reports multiple episodes, that are intermittent, that wax and wane. Modifying factors: The symptoms are alleviated by nothing. the symptoms are aggravated by nothing. Severity of pain: At its worst the pain was moderate today, in the emergency department the pain has improved moderately. Historical: - Allergies: 00:05 Norvasc; rr5 - Home Meds: 00:05 Eliquis Oral [Active]; Nitrofurantoin Macrocrystal Oral [Active]; losartan oral oral rr5 [Active]; Verapamil Oral [Active]; - PMHx: 00:05 Asthma; Atrial Fib; COPD; Hypertension; GALLSTONES; rr5 - PSHx: 00:05 Hysterectomy; Cholecystectomy; rr5 - Immunization history:: Adult Immunizations not up to date. - Social history:: Smoking status: unknown. ROS: 01:10 Constitutional: Negative for fever, chills, and weight loss, Eyes: Negative for injury, mh7 pain, redness, and discharge, ENT: Negative for injury, pain, and discharge, Neck: Negative for injury, pain, and swelling, Respiratory: Negative for shortness of breath, cough, wheezing, and pleuritic chest pain, Back: Negative for injury and pain, : Negative for injury, bleeding, discharge, and swelling, MS/Extremity: Negative for injury and deformity, Skin: Negative for injury, rash, and discoloration, Neuro: Negative for headache, weakness, numbness, tingling, and seizure, Psych: Negative for depression, anxiety, suicide ideation, homicidal ideation, and hallucinations, Allergy/Immunology: Negative for hives, rash, and allergies, Endocrine: Negative for neck swelling, polydipsia, polyuria, polyphagia, and marked weight changes, Hematologic/Lymphatic: Negative for swollen nodes, abnormal bleeding, and unusual bruising. Exam: 01:10 Constitutional: This is a well developed, well nourished patient who is awake, alert, mh7 and in no acute distress. Head/Face: Normocephalic, atraumatic. Eyes: Pupils equal round and reactive to light, extra-ocular motions intact. Lids and lashes normal. Conjunctiva and sclera are non-icteric and not injected. Cornea within normal limits. Periorbital areas with no swelling, redness, or edema. Neck: Trachea midline, no thyromegaly or masses palpated, and no cervical lymphadenopathy. Supple, full range of motion without nuchal rigidity, or vertebral point tenderness. No Meningismus. Chest/axilla: Normal chest wall appearance and motion. Nontender with no deformity. No lesions are appreciated. Cardiovascular: Regular rate and rhythm with a normal S1 and S2. No gallops, murmurs, or rubs. Normal PMI, no JVD. No pulse deficits. Respiratory: Lungs have equal breath sounds bilaterally, clear to auscultation and percussion. No rales, rhonchi or wheezes noted. No increased work of breathing, no retractions or nasal flaring. Abdomen/GI: Soft, non-tender, with normal bowel sounds. No distension or tympany. No guarding or rebound. No evidence of tenderness throughout. Back: No spinal tenderness. No costovertebral tenderness. Full range of motion. Skin: Warm, dry with normal turgor. Normal color with no rashes, no lesions, and no evidence of cellulitis. MS/ Extremity: Pulses equal, no cyanosis. Neurovascular intact. Full, normal range of motion. Neuro: Awake and alert, GCS 15, oriented to person, place, time, and situation. Cranial nerves II-XII grossly intact. Motor strength 5/5 in all extremities. Sensory grossly intact. Cerebellar exam normal. Normal gait. Psych: Awake, alert, with orientation to person, place and time. Behavior, mood, and affect are within normal limits. Vital Signs: 00:00 BP 162 / 99; Pulse 88; Resp 16; Temp 97.5; Pulse Ox 99% ; Weight 52.62 kg; Height 5 ft. rr5 2 in. (157.48 cm); Pain 0/10; 00:39 BP 151 / 78; Pulse 80; Resp 18; Pulse Ox 100% on R/A; mg2 02:24 BP 139 / 84; Pulse 72; Resp 18; Pulse Ox 97% on R/A; mg2 03:20 BP 139 / 80; Pulse 73; Resp 18; Temp 98; Pulse Ox 98% on R/A; mg2 00:00 Body Mass Index 21.22 (52.62 kg, 157.48 cm) rr5 MDM: 02:56 Differential diagnosis: abnormal EKG, acute myocardial infarction, acute pericarditis, mh7 anxiety, coronary artery disease chest wall pain, congestive heart failure costochondritis, pleurisy, pneumonia. HEART Score: History: Moderately Suspicious (1), ECG: Non specific repolarization disturbance / LBTB / PM (1), Age: > or = 65 years (2), Risk Factors: 1 or 2 risk factors (1), [Hypertension] Troponin: < or = 1 x Normal Limit (0), Total Score = 5. Data reviewed: vital signs, nurses notes, lab test result(s), cardiac enzymes, CBC, electrolytes, EKG, radiologic studies, plain films. Data interpreted: Pulse oximetry: on room air is 97 %. Interpretation: normal. Counseling: I had a detailed discussion with the patient and/or guardian regarding: the historical points, exam findings, and any diagnostic results supporting the discharge/admit diagnosis, the presence of at least one elevated blood pressure reading (>120/80) during this emergency department visit, lab results, radiology results, the need for further work-up and treatment in the hospital. 02:58 Patient medically screened. mh7 10/04 00:02 Order name: Basic Metabolic Panel; Complete Time: 02:05 mg2 10/04 00:02 Order name: CBC with Diff; Complete Time: 02:05 mg2 10/04 00:02 Order name: LFT's; Complete Time: 02:05 mg2 10/04 00:02 Order name: Magnesium; Complete Time: 02:05 mg2 10/04 00:02 Order name: NT PRO-BNP; Complete Time: 02:05 mg2 10/04 00:02 Order name: PT-INR; Complete Time: 02:05 mg2 10/04 00:02 Order name: Troponin (emerg Dept Use Only); Complete Time: 02:05 mg2 10/04 00:02 Order name: XRAY Chest (1 view) mg2 10/04 01:49 Order name: COVID-19 : Document "Date of Symptom Onset" if Symptomatic. mg2 10/04 02:08 Order name: Urine Dipstick--Ancillary (enter results); Complete Time: 02:18 tt3 10/04 02:08 Order name: Urine Microscopic Only; Complete Time: 02:55 tt3 10/04 03:19 Order name: SARS-COV-2 RT PCR EDMS 10/04 00:02 Order name: EKG; Complete Time: 00:03 mg2 10/04 00:02 Order name: Cardiac monitoring; Complete Time: 00:38 mg2 10/04 00:02 Order name: EKG - Nurse/Tech; Complete Time: 00:38 mg2 10/04 00:02 Order name: IV Saline Lock; Complete Time: 00:38 mg2 10/04 00:02 Order name: Labs collected and sent; Complete Time: 00:38 mg2 10/04 00:02 Order name: O2 Per Protocol; Complete Time: 00:38 mg2 10/04 00:02 Order name: O2 Sat Monitoring; Complete Time: 00:38 mg2 10/04 01:54 Order name: Urine Dipstick-Ancillary (obtain specimen); Complete Time: 02:24 mg2 Administered Medications: 02:00 Drug: Aspirin Chewable Tablet 324 mg Route: PO; mg2 03:35 Follow up: Response: No adverse reaction mg2 02:25 Drug: Potassium Effervescent Tablet 50 mEq Route: PO; mg2 03:35 Follow up: Response: No adverse reaction mg2 03:02 Drug: Rocephin (cefTRIAXone) 1 grams Route: IV; Rate: calculated rate; Site: left mg2 forearm; 03:34 Follow up: Response: No adverse reaction; IV Status: Completed infusion mg2 Disposition: 10/04/20 02:58 Hospitalization ordered by Pérez Russell for Observation. Preliminary diagnosis is Chest pain, unspecified. - Bed requested for Telemetry/MedSurg (observation). - Status is Observation. mg2 - Condition is Stable. - Problem is new. - Symptoms have improved. Signatures: Dispatcher [employer] EDJulien Lozoya, ADVANCED NURSING PROFESSOR-C ADVANCED NURSING PROFESSOR-Cla1 Shraddha Zuñiga, RN RN cg Cam Kat, RN RN mg2 Pérez Talbert, BRYNN RN rr5 Manuel Daley MD MD 7 Corrections: (The following items were deleted from the chart) 03:36 02:58 Hospitalization Ordered by Pérez Russell MD for Observation. Preliminary cg diagnosis is Chest pain, unspecified. Bed requested for Telemetry/MedSurg (observation). Status is Observation. Condition is Stable. Problem is new. Symptoms have improved. 7 03:46 03:36 10/04/2020 02:58 Hospitalization Ordered by Pérez Russell MD for Observation. mg2 Preliminary diagnosis is Chest pain, unspecified. Bed requested for Telemetry/MedSurg (observation). Status is Observation. Condition is Stable. Problem is new. Symptoms have improved. cg
--- NOTE | 2020-10-04 02:58 | ER ---
Nurse's Notes [facility] Name: Marisela Sullivan Age: 80 yrs Sex: Female : 1940 Arrival Date: 10/04/2020 Time: 00:00 Bed 17 Private MD: Diagnosis: Chest pain, unspecified Presentation: 10/04 00:00 Chief complaint: EMS states: complaining of nausea, left sided chest pain like a rr5 stabbing pain on and off. but now she feels better she stopped her medication for 2 months. ECG showed afib. Coronavirus screen: Client denies travel out of the [place] in the last 14 days. At this time, the client does not indicate any symptoms associated with coronavirus-19. Ebola Screen: Patient negative for fever greater than or equal to 101.5 degrees Fahrenheit, and additional compatible Ebola Virus Disease symptoms Patient denies exposure to infectious person. Patient denies travel to an Ebola-affected area in the 21 days before illness onset. Initial Sepsis Screen: Does the patient meet any 2 criteria? No. Patient's initial sepsis screen is negative. Does the patient have a suspected source of infection? No. Patient's initial sepsis screen is negative. Risk Assessment: Do you want to hurt yourself or someone else? Patient reports no desire to harm self or others. Onset of symptoms was October 01, 2020. 00:00 Method Of Arrival: EMS: [facility] rr5 00:00 Acuity: RIYA 3 rr5 Historical: - Allergies: 00:05 Norvasc; rr5 - Home Meds: 00:05 Eliquis Oral [Active]; Nitrofurantoin Macrocrystal Oral [Active]; losartan oral oral rr5 [Active]; Verapamil Oral [Active]; - PMHx: 00:05 Asthma; Atrial Fib; COPD; Hypertension; GALLSTONES; rr5 - PSHx: 00:05 Hysterectomy; Cholecystectomy; rr5 - Immunization history:: Adult Immunizations not up to date. - Social history:: Smoking status: unknown. Screenin:05 Abuse screen: Denies threats or abuse. Denies injuries from another. Nutritional rr5 screening: No deficits noted. Tuberculosis screening: No symptoms or risk factors identified. Fall Risk IV access (20 points). Total Wiley Fall Scale indicates No Risk (0-24 pts). Assessment: 00:42 General: Appears in no apparent distress. comfortable, Behavior is calm, cooperative. mg2 Pain: Complains of pain in chest Pain does not radiate. Quality of pain is described as aching, Pain began gradually. Neuro: Level of Consciousness is awake, alert, obeys commands, Oriented to person, place, time, situation. Cardiovascular: Capillary refill < 3 seconds Patient's skin is warm and dry. Respiratory: Airway is patent Respiratory effort is even, unlabored, Respiratory pattern is regular, symmetrical. GI: No signs and/or symptoms were reported involving the gastrointestinal system. : No signs and/or symptoms were reported regarding the genitourinary system. EENT: No signs and/or symptoms were reported regarding the EENT system. Derm: Skin is intact, is healthy with good turgor, Skin is pink, warm \T\ dry. normal. Musculoskeletal: Circulation, motion, and sensation intact. Capillary refill < 3 seconds. 02:23 Reassessment: Patient appears in no apparent distress at this time. Patient and/or mg2 family updated on plan of care and expected duration. Pain level reassessed. Patient is alert, oriented x 3, equal unlabored respirations, skin warm/dry/pink. WILLIAM Victoria came and talked to the patient about admission. Vital Signs: 00:00 BP 162 / 99; Pulse 88; Resp 16; Temp 97.5; Pulse Ox 99% ; Weight 52.62 kg; Height 5 ft. rr5 2 in. (157.48 cm); Pain 0/10; 00:39 BP 151 / 78; Pulse 80; Resp 18; Pulse Ox 100% on R/A; mg2 02:24 BP 139 / 84; Pulse 72; Resp 18; Pulse Ox 97% on R/A; mg2 03:20 BP 139 / 80; Pulse 73; Resp 18; Temp 98; Pulse Ox 98% on R/A; mg2 00:00 Body Mass Index 21.22 (52.62 kg, 157.48 cm) rr5 ED Course: 00:00 Patient arrived in ED. rr5 00:01 Cam Kat, RN is Primary Nurse. mg2 00:03 Triage completed. rr5 00:05 Arm band placed on right wrist. rr5 00:05 Patient has correct armband on for positive identification. Placed in gown. Bed in low rr5 position. Call light in reach. Side rails up X2. color television console monitor on. Pulse ox on. NIBP on. 00:06 Maintain EMS IV. Dressing intact. Good blood return noted. Site clean \T\ dry. Gauge \T\ rr 5 site: g20 left ac. 00:34 Manuel Daley MD is Attending Physician. [facility] 00:39 No provider procedures requiring assistance completed. Inserted saline lock: 20 gauge mg2 in left forearm, using aseptic technique. Blood collected. 00:43 Patient maintains SpO2 saturation greater than 95% on room air. mg2 00:57 XRAY Chest (1 view) In Process Unspecified. EDMS 02:25 COVID swab sent to lab. Patient admitted, IV remains in place. mg2 02:58 Pérez Russell MD is Hospitalizing Provider. 7 Administered Medications: 02:00 Drug: Aspirin Chewable Tablet 324 mg Route: PO; mg2 03:35 Follow up: Response: No adverse reaction mg2 02:25 Drug: Potassium Effervescent Tablet 50 mEq Route: PO; mg2 03:35 Follow up: Response: No adverse reaction mg2 03:02 Drug: Rocephin (cefTRIAXone) 1 grams Route: IV; Rate: calculated rate; Site: left mg2 forearm; 03:34 Follow up: Response: No adverse reaction; IV Status: Completed infusion mg2 Outcome: 02:58 Decision to Hospitalize by Provider. 7 03:45 Admitted to Med/surg accompanied by nurse, via wheelchair, room 228, with chart, Report mg2 called to BRYNN Packer 03:45 Condition: stable 03:45 Instructed on the need for admit, Demonstrated understanding of instructions. 03:46 Patient left the ED. mg2 Signatures: Dispatcher [employer] EDKS Cam Kat, BRYNN RN mg2 Pérez Talbert RN RN rr5 Manuel Daley MD MD 7
[2020-10-04] MEDS ORDERED: CEFTRIAXONE/SWI 1gm 1 GM/10 ML SYR ONE (03:21)
[2020-10-04 03:57] VITALS: O2SAT 98
[2020-10-04] MEDS ORDERED: ACETAMINOPHEN 500 MG TAB PO PRN (04:21)
[2020-10-04] MEDS ORDERED: ONDANSETRON 4 MG/2 ML VIAL IV PRN (04:21)
[2020-10-04 04:31] VITALS: BMI 21.2
[2020-10-04] MEDS ORDERED: ALBUTEROL 2.5 MG/3 ML NEB SOL NEB PRN (04:48)
[2020-10-04 06:55] LABS: BUN Blood Urea Nitrogen 13 mg/dL (7-18); Bicarbonate 30 mmol/L (21-32); Glucose Level 90 mg/dL (74-106); HDL Cholesterol 62 mg/dL (40-60); LDL Cholesterol, Calculated 83 (<130); Sodium Level 145 mmol/L (136-145); Troponin I < 0.02 ng/mL (0.0-0.045)
[2020-10-04] MEDS ORDERED: ASPIRIN EC 81 MG TAB PO SCH (09:00)
[2020-10-04] MEDS ORDERED: CEFTRIAXONE 1 GM/NS 50 ML 1 GM/50 ML BAG IV SCH (09:00)
[2020-10-04] MEDS ORDERED: ENOXAPARIN 30 MG/0.3 ML SQ SCH (09:00)
[2020-10-04 11:15] LABS: C.diff Antigen/Toxin Ag neg : Tox neg (NEG : NEG)
--- NOTE | 2020-10-04 12:58 | RAD REPORT ---
EXAM DESCRIPTION: Chest Single View 10/04/2020 12:59 AM CDT CLINICAL HISTORY: 80 years, Female, CHEST PAIN COMPARISON: 09/26/2019, previous CTA performed 09/27/2019 FINDINGS: Single view of the chest was obtained portable. Prior films were compared. External EKG le ads within the [id number] limits diagnosis. The heart is prominent. The thoracic aorta is mildly tortuous with intimal calcification. The pulmonary vasculature is normal distribution. Costophreni c angles are sharp. No areas of consolidation or masses are seen. The rest of the soft tissue and bony structures demonstrate to be unremarkable. IMPRESSION: Cardiomegaly. No consolidation or masses are seen. No significant interval change Electronically signed by: Sonido Tavarez MD 10/04/2020 1:00 AM CDT Due to temporary technical issues with the PACS/Fluency reporting system, reports are being signed by the in house radiologist without review as a courtesy to ensure prompt reporting. The interpreting r adiologist is fully responsible for the content of the report.
[2020-10-04 17:38] VITALS: BP 159/75; TEMP 97.5
--- NOTE | 2020-10-04 20:07 | P.DS ---
Admission Date: 10/04/20 Discharge Date: 10/04/20 Primary Care Provider: PAULETTE Disposition: ROUTINE DISCHARGE Discharge Condition: GOOD Reason for Admission: Chest pain Consultations: Cardio - Dr. Sam Procedures: Problem List: Chest pain rule out ACS Chronic Atrial fibrillation, not on anticoagulation Hypertension COPD Brief History of Present Illness: 80yo F, PMH: chronic Afib, HTN, HLD, presented to emergency department for chest pain. Patient reports the chest pain began this evening, describes pain as jean-pierre p/stabbing to the left anterior chest wall, nonradiating associated with some mild shortness of breath, dizziness, nausea. Patient reports that she has had this pain in the past intermittently. Last stress test approximately 2 years prior but normal at that time. Patient has never had a heart catheterization previously. Troponin negative, chest x-ray unremarkable. BNP with some elevation. Patient not short of breath at all, reports that she stopped taking all of her home medications approximately 2 months ago because she has had their making her more groggy and now she says she feels much better. Patient used to be on Eliquis but has stopped taking this as well. Patient chest pain free at this time, ED provider wishes to admit for further evaluation and management. Hospital Course: Troponins were trended and remained negative x3. She did not have any recurrence of her chest pain during her hospitalization. There were no abnormal events noted on telemetry. Cardiology was consulted and recommended no further evaluation while inpatient at this time. Patient is to follow up with cardiology for an outpatient stress test. Patient was advised to restart her home medications as previously prescribed, especially her Eliquis. Vital Signs/Physical Exam: Physical Exam General: Alert, In no apparent distress HEENT: Atraumatic, PERRLA, Mucous membr. moist/pink Neck: Supple, 2+ carotid pulse no bruit, No LAD Respiratory: Clear to auscultation bilaterally, Normal air movement Cardiovascular: Regular rate/rhythm, Normal S1 S2 Gastrointestinal: Normal bowel sounds, No tenderness Musculoskeletal: No tenderness Integumentary: No rashes Neurological: Normal speech, Normal strength at 5/5 x4 extr, Normal tone, Normal affect Temp Pulse Resp BP Pulse Ox 97.5 F 95 H 20 159/75 H 97 10/04/20 16:00 10/04/20 16:00 10/04/20 16:00 10/04/20 16:00 10/04/20 16:00 Laboratory Data at Discharge: WBC 7.50 K/uL (4.3-10.9) 10/04/20 00:15 Hgb 12.8 g/dL (12.0-15.0) 10/04/20 00:15 Hct 37.5 % (36.0-45.0) 10/04/20 00:15 Plt Count 227 K/uL (152-406) 10/04/20 00:15 PT 11.4 SECONDS (9.5-12.5) 10/04/20 00:15 INR 0.99 10/04/20 00:15 Sodium 145 mmol/L (136-145) 10/04/20 06:18 Potassium 4.0 mmol/L (3.5-5.1) 10/04/20 06:18 BUN 13 mg/dL (7-18) 10/04/20 06:18 Creatinine 0.59 mg/dL (0.55-1.3) 10/04/20 06:18 Glucose 90 mg/dL (74-106) 10/04/20 06:18 Magnesium 2.4 mg/dL (1.8-2.4) 10/04/20 00:15 Total Bilirubin 0.5 mg/dL (0.2-1.0) 10/04/20 00:15 AST 22 U/L (15-37) 10/04/20 00:15 ALT 22 U/L (12-78) 10/04/20 00:15 Alkaline Phosphatase 69 U/L (45-117) 10/04/20 00:15 Troponin I < 0.02 ng/mL (0.0-0.045) 10/04/20 11:02 Triglycerides 69 mg/dL (<150) 10/04/20 06:18 Cholesterol 159 mg/dL (<200) 10/04/20 06:18 HDL Cholesterol 62 mg/dL (40-60) H 10/04/20 06:18 Cholesterol/HDL Ratio 2.56 10/04/20 06:18 Home Medications: RX: Apixaban [Eliquis] 5 mg PO BID 10/04/20 RX: Losartan Potassium 50 mg PO DAILY 10/04/20 RX: Nitrofuran Macro [Macrodantin*] 50 mg PO DAILY 10/04/20 RX: Verapamil HCl [Verapamil ER] 240 mg PO BID 10/04/20 Physician Discharge Instructions: Your chest pain who was evaluated by EKG and troponins, which were normal and did not show any signs of heart damage/ischemia. It is recommended that he follow up with Cardiology in the next few weeks to undergo a cardiac stress test. Please call the office to schedule this in the next few days. Please resume her home medications as previously prescribed, further discuss with your PCP. The urine sample you provided did have some bacteria, however, was not the best sample. You did not have any other signs of infection, so you are not discharged with an antibiotic as we discussed. He began to have symptoms of a urinary tract infection, recommend you discuss with your PCP. Diet: AHA Activity: Ad elizabeth Followup: NONE,NONE [Primary Care Provider] - Dmitri Sam MD [ACTIVE - CAN ADMIT] - Time spent managing pt's care (in minutes): 45
[2020-10-05] MEDS ORDERED: CEFTRIAXONE/SWI 1gm 1 GM/10 ML SYR IV SCH (06:00)
== END 2020-10-04 17:47 | disposition home or self-care (01) ==
LOC: ER 23:55 → ERHOLD 10-04 02:04 → 2ND 10-04 03:39
PROVIDERS: ADMIT Hospitalist; ATTEND Hospitalist
DX: R07.9 Chest pain, unspecified (principal); I48.20 Chronic atrial fibrillation, unspecified; I10 Essential (primary) hypertension; J44.9 Chronic obstructive pulmonary disease, unspecified; E78.5 Hyperlipidemia, unspecified; Z20.822 Contact with and (suspected) exposure to COVID-19; R94.31 Abnormal electrocardiogram [ECG] [EKG]
CPT/HCPCS: 96365; 93005; 87088; 85025; 87086; 80048 ×2; 36415; 83735; 85610; 80061; 80076; 84443; 87077; 87186; 87324; 84484 ×3; 84439; 83880; 87449; 71045; 94640; 99285; U0003; J1650; J0696; G0378 ×2; 81003; 81015

== ENCOUNTER 2021-05-19 11:44 | Emergency (ER) | payer OTHER ==
[2021-05-19 13:14] LABS: Absolute Lymphocytes (CBC) 0.7 K/uL (0.7-4.9); Basophils % 0.9 % (0-1.3); Hematocrit 40.9 % (36.0-45.0); Lymphocytes % 8.8 % (15.3-44.8); MPV 7.9 fL (7.6-11.3); RBC Red Blood Cell Count 4.36 M/uL (3.86-4.86)
[2021-05-19 13:19] LABS: Protime INR 1.45
[2021-05-19 13:37] LABS: ALT/SGPT 25 U/L (12-78); AST/SGOT 23 U/L (15-37); Albumin 4.6 g/dL (3.4-5.0); Alkaline Phosphatase 88 U/L (45-117); BUN Blood Urea Nitrogen 14 mg/dL (7-18); Bicarbonate 28 mmol/L (21-32); Bilirubin Direct 0.2 mg/dL (0-0.2); Bilirubin Total 0.9 mg/dL (0.2-1.0); Glucose Level 121 mg/dL (74-106); Magnesium 2.4 mg/dL (1.8-2.4); NT PRO-BNP 1755 pg/mL (<450); Potassium 3.4 mmol/L (3.5-5.1); Protein, Total 8.4 g/dL (6.4-8.2); Sodium Level 141 mmol/L (136-145); Troponin (Emerg Dept Use Only) < 0.02 ng/mL (0.0-0.045)
--- NOTE | 2021-05-19 14:10 | RAD REPORT ---
EXAM DESCRIPTION: RAD - Chest Single View - 05/19/2021 1:51 pm CLINICAL HISTORY: COUGH Chest pain. COMPARISON: Chest Single View dated 10/04/2020; Chest Single View dated 09/26/2019; Chest Single View dated 03/28/2016; CHEST SINGLE VIEW dated 08/19/2008 FINDINGS: Portable technique limits examination quality. The lungs are mildly emphysematous but grossly clear. The heart is moderately enlarged in size. No di splaced fractures.
[2021-05-19] MEDS ORDERED: NA CHLORIDE 0.9% 1,000 ML ONE (14:14)
--- NOTE | 2021-05-19 14:29 | RAD REPORT ---
EXAM DESCRIPTION: US - Extrem Venous W Compress Refugio - 05/19/2021 2:06 pm CLINICAL HISTORY: PAIN Bilateral leg edema and swelling. COMPARISON: No comparisons TECHNIQUE: Real-time sonographic interrogation of the left and right lower extremity deep venous sys tems was performed. FINDINGS: Normal compressibility, flow augmentation, phasic flow and spontaneous flow is identified in both the left and right lower extremity deep venous systems. IMPRESSION: No sonographic evidence of left or right lower extremity deep venous thrombosis.
--- NOTE | 2021-05-19 14:31 | RAD REPORT ---
EXAM DESCRIPTION: CT - Chest For Pe Angio - 05/19/2021 2:11 pm CLINICAL HISTORY: Chest pain. Congestion;Dyspnea COMPARISON: CTANGIO CHEST FOR PE dated 08/19/2008 TECHNIQUE: CT angiogram of the pulmonary arteries was performed with MIP. All CT scans are performed using dose optimization technique as appropriate and may include automated exposure control or mA/KV adjustment according to patient size. FINDINGS: No evidence of pulmonary thromboembolism. No acute aortic finding demonstrated. Mild interstitial pulmonary edema suspected. The right ventricle appears enlarged. There is prominent dilatation of the left atrium. No significant pericardial or pleural fluid. No concerning bony finding. Punctate left renal calculus. IMPRESSION: No evidence of pulmonary thromboembolism. Mild interstitial pulmonary edema.
[2021-05-19] MEDS ORDERED: LEVALBUTEROL 1.25 MG/3 ML NEB ONE ×2 (15:07→15:27)
[2021-05-19] MEDS ORDERED: FUROSEMIDE 20 MG TABLET ONE (15:07)
[2021-05-19] MEDS ORDERED: METHYLPREDNISOLONE 125 MG INJ ONE (15:07)
[2021-05-19] MEDS ORDERED: predniSONE 20 MG TAB ONE (15:07)
[2021-05-19] MEDS ORDERED: ALBUTEROL 2.5 MG/3 ML NEB SOL ONE (15:08)
[2021-05-19] MEDS ORDERED: FUROSEMIDE 40 MG/4 ML VIAL ONE (15:08)
--- NOTE | 2021-05-19 15:12 | ER ---
Nurse's Notes [facility] Name: Marisela Sullivan Age: 81 yrs Sex: Female : 1940 Arrival Date: 05/19/2021 Time: 11:47 Bed 20 Private MD: Diagnosis: Systolic (congestive) heart failure;COPD/ Chronic obstructive pulmonary disease with (acute) exacerbation;Chronic atrial fibrillation;Hypokalemia Presentation: 05/19 12:00 Chief complaint: Patient states: thinks she has the flu, has nasal congestion and it iw hurts when she breaths, hurts her chest and back, +productive cough, no fever , started yesterday morning. Coronavirus screen: congestion, cough unrelated to allergies, Client presents with at least one sign or symptom that may indicate coronavirus-19. Ebola Screen: Patient negative for fever greater than or equal to 101.5 degrees Fahrenheit, and additional compatible Ebola Virus Disease symptoms Patient denies exposure to infectious person. Patient denies travel to an Ebola-affected area in the 21 days before illness onset. No symptoms or risks identified at this time. Initial Sepsis Screen: Does the patient meet any 2 criteria? No. Patient's initial sepsis screen is negative. Does the patient have a suspected source of infection? No. Patient's initial sepsis screen is negative. Risk Assessment: Do you want to hurt yourself or someone else? Patient reports no desire to harm self or others. Onset of symptoms was May 19, 2021. 12:00 Method Of Arrival: Ambulatory iw 12:00 Acuity: RIYA 3 iw Historical: - Allergies: 12:02 Norvasc; iw - Home Meds: 12:02 Advair Diskus 250-50 mcg/dose Inhl dsdv 1 puff 2 times per day [Active]; Eliquis Oral iw daily [Active]; losartan Oral once daily [Active]; verapamil 240 mg Oral TbER 1 tab twice a day [Active]; zolpidem 10 mg Oral tab 1 tab PRN [Active]; - PMHx: 12:02 Asthma; Atrial Fib; COPD; GALLSTONES; Hypertension; iw - PSHx: 12:02 hysterectomy; iw - Immunization history:: Client reports receiving the 2nd dose of the Covid vaccine. - Social history:: Smoking status: Patient/guardian denies using tobacco, but has a distant history of tobacco abuse. Screenin:05 Abuse screen: Denies threats or abuse. Nutritional screening: No deficits noted. sl2 Tuberculosis screening: No symptoms or risk factors identified. Fall Risk No secondary diagnosis (0 pts). Ambulatory Aid- None/Bed Rest/Nurse Assist (0 pts). Gait- Impaired (20 pts.). Mental Status- Oriented to own ability (0 pts). 12:05 Fall Risk Total Wiley Fall Scale indicates No Risk (0-24 pts). sl2 Assessment: 12:05 Reassessment: Patient CARLEENO X 3, presents to ED with c/o congestion, productive cough sl2 with yellow colored sputum and chest pain with breathing - onset yesterday. Patient denies fever. 12:05 General: Appears in no apparent distress. well groomed, well developed, Behavior is sl2 calm, cooperative, Reports congestions, productive cough, chest pain with breathing and coughing - denies fever Denies fever. Pain: Complains of pain in right and left chest wall Pain does not radiate. Pain currently is 4 out of 10 on a pain scale. Quality of pain is described as burning, Pain began gradually, Is continuous, Alleviated by rest, Aggravated by coughing, deep breathing Noted to be quiet/stoic. Neuro: No deficits noted. Level of Consciousness is awake, alert, obeys commands, Oriented to person, place, time, situation, Wheelchair Van Driver are equal bilaterally Moves all extremities. Cardiovascular: No deficits noted. Respiratory: Reports cough that is productive, pain with cough pain with respiration Breath sounds are clear bilaterally. Breath sounds are diminished in left posterior lower lobe Onset: The symptoms/episode began/occurred yesterday, the patient has mild shortness of breath Denies shortness of breath. GI: No deficits noted. No signs and/or symptoms were reported involving the gastrointestinal system. : No deficits noted. No signs and/or symptoms were reported regarding the genitourinary system. EENT: No deficits noted. No signs and/or symptoms were reported regarding the EENT system. Derm: No deficits noted. No signs and/or symptoms reported regarding the dermatologic system. Musculoskeletal: No deficits noted. No signs and/or symptoms reported regarding the musculoskeletal system. Vital Signs: 12:00 BP 170 / 95; Pulse 82; Resp 19; Temp 97.8; Pulse Ox 98% on R/A; Weight 53.52 kg; Height iw 5 ft. 2 in. (157.48 cm); 12:21 BP 171 / 85; Pulse 78; Resp 18; Temp 97.9; Pulse Ox 97% on R/A; sl2 12:30 BP 160 / 96; Pulse 62; Resp 18; Temp 97.8(O); Pulse Ox 97% on R/A; sl2 13:30 BP 166 / 88; Pulse 62; Resp 18; Pulse Ox 98% on R/A; sl2 14:30 BP 166 / 76; Pulse 65; Resp 18; Temp 97.9; Pulse Ox 98% on R/A; sl2 12:00 Body Mass Index 21.58 (53.52 kg, 157.48 cm) iw ED Course: 11:47 Patient arrived in ED. mr 12:02 Triage completed. iw 12:03 Arm band placed on. iw 12:05 Patient has correct armband on for positive identification. Bed in low position. Side sl2 rails up X2. Adult w/ patient. 12:05 No provider procedures requiring assistance completed. sl2 12:12 Hank Reyna MD is Attending Physician. percy 12:15 Zulma Campbell, BRYNN is Primary Nurse. sl2 13:51 XRAY Chest (1 view) In Process Unspecified. EDMS 14:06 US Extremity Venous W Compression [place] In Process Unspecified. EDMS 14:11 CT Chest For PE Angio In Process Unspecified. EDMS 14:37 Call light in reach. Warm blanket given. Pillow given. playground monitor on. Pulse ox on. mh5 NIBP on. 14:37 Blood Culture Adult (2) Sent. mh5 14:37 Basic Metabolic Panel Sent. mh5 15:10 Babar Russell MD is Referral Physician. percy 15:10 Peewee Luis MD is Referral Physician. percy 16:10 IV discontinued, intact, bleeding controlled, No redness/swelling at site. Pressure iw dressing applied. Administered Medications: 14:41 Discontinued: NS 0.9% 1000 ml IV at 125 ml/hr continuous percy 13:13 Drug: NS 0.9% 1000 ml Route: IV; Rate: 125 ml/hr; Site: left antecubital; sl2 15:18 CANCELLED (Duplicate Order): predniSONE 20 mg PO once percy 15:45 Drug: Xopenex (levalbuterol) 2.5 mg Route: Inhalation; iw 16:04 Follow up: Response: No adverse reaction sl2 15:45 Drug: AtroVENT (ipratropium) Aerosol 0.5 mg Route: Inhalation; iw 16:04 Follow up: Response: No adverse reaction sl2 15:45 Drug: Lasix (furosemide) 20 mg Route: IVP; Site: left antecubital; iw 16:04 Follow up: Response: No adverse reaction sl2 15:45 Drug: Potassium Effervescent Tablet 25 mEq Route: PO; iw 16:04 Follow up: Response: No adverse reaction sl2 15:45 Drug: predniSONE 40 mg Route: PO; iw 16:04 Follow up: Response: No adverse reaction sl2 15:50 Drug: SOLU-Medrol (methylPrednisoLONE) 125 mg Route: IVP; Site: left antecubital; iw 16:04 Follow up: Response: No adverse reaction sl2 Outcome: 15:11 Discharge ordered by . [facility] 16:11 Discharged to home ambulatory, with family. iw 16:11 Condition: good 16:11 Discharge instructions given to patient, Instructed on discharge instructions, follow up and referral plans. medication usage, Demonstrated understanding of instructions, follow-up care, medications, Prescriptions given X 6 16:11 Patient left the ED. Signatures: Dispatcher [employer] Hank Cortés MD MD cha Rivera, Mary mr Williams, Irene, RN Jessie Lazo Zulma Nelson RN RN sl2
--- NOTE | 2021-05-19 15:12 | EDPHYS ---
Physician Documentation [facility] Name: Marisela Sullivan Age: 81 yrs Sex: Female : 1940 Arrival Date: 05/19/2021 Time: 11:47 Bed 20 Private MD: BERRY Physician Hank Reyna HPI: 05/19 14:58 This 81 yrs old Female presents to ER via Ambulatory with complaints of Chest percy Congestion. 14:58 The patient has shortness of breath with light activity. Onset: The symptoms/episode percy began/occurred 2 day(s) ago. Duration: The symptoms are continuous, and are unchanged since they started. The patient's shortness of breath is aggravated by deep breaths. The patient or guardian reports chest pain that is located primarily in the anterior chest wall, bilaterally, and back. Onset: 1 day(s) ago. The pain does not radiate. Associated signs and symptoms: Pertinent positives: non-productive cough. Severity of symptoms: At their worst the symptoms were mild in the emergency department the symptoms are unchanged. The patient or guardian reports airway noise, cough, difficulty breathing, flu symptoms, arthralgias, no appetite. Onset: The symptoms/episode began/occurred 1 day(s) ago. Historical: - Allergies: 12:02 Norvasc; iw - Home Meds: 12:02 Advair Diskus 250-50 mcg/dose Inhl dsdv 1 puff 2 times per day [Active]; Eliquis Oral iw daily [Active]; losartan Oral once daily [Active]; verapamil 240 mg Oral TbER 1 tab twice a day [Active]; zolpidem 10 mg Oral tab 1 tab PRN [Active]; - PMHx: 12:02 Asthma; Atrial Fib; COPD; GALLSTONES; Hypertension; iw - PSHx: 12:02 hysterectomy; iw - Immunization history:: Client reports receiving the 2nd dose of the Covid vaccine. - Social history:: Smoking status: Patient/guardian denies using tobacco, but has a distant history of tobacco abuse. ROS: 15:01 Constitutional: Negative for fever, chills, and weight loss, Eyes: Negative for injury, percy pain, redness, and discharge, ENT: Negative for injury, pain, and discharge, Neck: Negative for injury, pain, and swelling, Abdomen/GI: Negative for abdominal pain, nausea, vomiting, diarrhea, and constipation, Back: Negative for injury and pain, : Negative for injury, bleeding, discharge, and swelling, MS/Extremity: Negative for injury and deformity, Skin: Negative for injury, rash, and discoloration, Neuro: Negative for headache, weakness, numbness, tingling, and seizure, Psych: Negative for depression, anxiety, suicide ideation, homicidal ideation, and hallucinations, Allergy/Immunology: Negative for hives, rash, and allergies, Endocrine: Negative for neck swelling, polydipsia, polyuria, polyphagia, and marked weight changes, Hematologic/Lymphatic: Negative for swollen nodes, abnormal bleeding, and unusual bruising. 15:01 Cardiovascular: Positive for chest pain, with cough, of the back and chest. 15:01 Respiratory: Positive for cough, dyspnea on exertion, orthopnea, pleurisy, shortness of breath, wheezing, inspiratory, expiratory. 15:01 Abdomen/GI: Negative for abdominal pain. Exam: 15:01 Constitutional: This is a well developed, well nourished patient who is awake, alert, percy and in no acute distress. Head/Face: Normocephalic, atraumatic. Eyes: Pupils equal round and reactive to light, extra-ocular motions intact. Lids and lashes normal. Conjunctiva and sclera are non-icteric and not injected. Cornea within normal limits. Periorbital areas with no swelling, redness, or edema. ENT: Nares patent. No nasal discharge, no septal abnormalities noted. Tympanic membranes are normal and external auditory canals are clear. Oropharynx with no redness, swelling, or masses, exudates, or evidence of obstruction, uvula midline. Mucous membranes moist. Neck: Trachea midline, no thyromegaly or masses palpated, and no cervical lymphadenopathy. Supple, full range of motion without nuchal rigidity, or vertebral point tenderness. No Meningismus. Chest/axilla: Normal chest wall appearance and motion. Nontender with no deformity. No lesions are appreciated. Abdomen/GI: Soft, non-tender, with normal bowel sounds. No distension or tympany. No guarding or rebound. No evidence of tenderness throughout. Back: No spinal tenderness. No costovertebral tenderness. Full range of motion. Female : Normal external genitalia. Skin: Warm, dry with normal turgor. Normal color with no rashes, no lesions, and no evidence of cellulitis. MS/ Extremity: Pulses equal, no cyanosis. Neurovascular intact. Full, normal range of motion. Neuro: Awake and alert, GCS 15, oriented to person, place, time, and situation. Cranial nerves II-XII grossly intact. Motor strength 5/5 in all extremities. Sensory grossly intact. Cerebellar exam normal. Normal gait. Psych: Awake, alert, with orientation to person, place and time. Behavior, mood, and affect are within normal limits. 15:01 Cardiovascular: Rate: normal, Rhythm: irregularly irregular, Pulses: Pulses are 4+ in bilateral radial, brachial, femoral, popliteal, posterior tibial and and dorsalis pedis arteries.. Heart sounds: normal, Edema: is not appreciated, JVD: is noted bilaterally, to 2 cm. 15:01 ECG was reviewed by the Attending Physician. Vital Signs: 12:00 BP 170 / 95; Pulse 82; Resp 19; Temp 97.8; Pulse Ox 98% on R/A; Weight 53.52 kg; Height iw 5 ft. 2 in. (157.48 cm); 12:21 BP 171 / 85; Pulse 78; Resp 18; Temp 97.9; Pulse Ox 97% on R/A; sl2 12:30 BP 160 / 96; Pulse 62; Resp 18; Temp 97.8(O); Pulse Ox 97% on R/A; sl2 13:30 BP 166 / 88; Pulse 62; Resp 18; Pulse Ox 98% on R/A; sl2 14:30 BP 166 / 76; Pulse 65; Resp 18; Temp 97.9; Pulse Ox 98% on R/A; sl2 12:00 Body Mass Index 21.58 (53.52 kg, 157.48 cm) iw MDM: 12:12 Patient medically screened. percy 15:05 Differential diagnosis: Anxiety Reaction asthma, Bronchitis CHF exacerbation, Chronic percy Obstructive Pulmonary Disease abnormal EKG, acute pericarditis, anxiety, coronary artery disease esophagitis, gastroesophageal reflux disease (GERD), pancreatitis, pleurisy, pneumonia, pneumothorax, pulmonary embolus, stable angina, unstable angina, Myocardial Infarction Pneumothorax pulmonary edema, Pulmonary Embolism reactive airway disease, Sepsis Unstable Angina. Antibiotic administration: Levaquin given. HEART Score: History: Slightly Suspicious (0), ECG: Non specific repolarization disturbance / LBTB / PM (1), Age: > or = 65 years (2), Risk Factors: > or = 3 Risk factors for atherosclerotic disease (2), [Hypercholesterolemia] [Hypertension] [+ Family HX] Troponin: < or = 1 x Normal Limit (0), Total Score = 5. The patient was not given aspirin in the Emergency Department. Not indicated due to patient's past medical history. The patient's Wells Deep Vein Thrombosis Score was calculated as follows: Total Score: 0. This patient was found to be at low risk for a deep vein thrombosis by using the Well's assessment criteria Total Score: 0-2 Pts- Low Risk. Differential Diagnosis: Bronchitis Influenza Upper Respiratory Infection Sinusitis Pneumonia. The patient's pulmonary embolism risk score was calculated as follows: Total Score: 0-2 points. This patient was found to be at low risk for a pulmonary embolism by using the Well's assessment criteria Total Score: 0-2 points. This patient was found to be at low risk for a pulmonary embolism by using the Well's assessment criteria. ELIZABETH Risk Score: 1 - patient's age is greater or equal to 65 years, 1 - Three or more CAD risk factors, 1- Known CAD, TOTAL SCORE = 3. Immunization status: Pneumococcal vaccine: Influenza vaccine: Data reviewed: vital signs, nurses notes, lab test result(s), EKG, radiologic studies, plain films. Data interpreted: hall monitor: rate is 78 beats/min, rhythm is atrial fibrillation, Pulse oximetry: on room air is 78 %. Test interpretation: by ED physician or midlevel provider: ECG, plain radiologic studies. Counseling: I had a detailed discussion with the patient and/or guardian regarding: the historical points, exam findings, and any diagnostic results supporting the discharge/admit diagnosis, the presence of at least one elevated blood pressure reading (>120/80) during this emergency department visit, lab results, radiology results, the need for outpatient follow up. 05/19 12:18 Order name: Basic Metabolic Panel [facility] 05/19 12:18 Order name: CBC with Diff; Complete Time: 14:23 [facility] 05/19 12:18 Order name: LFT's; Complete Time: 14:23 [facility] 05/19 12:18 Order name: Magnesium; Complete Time: 14:23 [facility] 05/19 12:18 Order name: NT PRO-BNP; Complete Time: 14:23 [facility] 05/19 12:18 Order name: PT-INR; Complete Time: 14:23 [facility] 05/19 12:18 Order name: Troponin (emerg Dept Use Only); Complete Time: 14:23 [facility] 05/19 12:18 Order name: XRAY Chest (1 view); Complete Time: 14:23 [facility] 05/19 12:18 Order name: Blood Culture Adult (2) [facility] 05/19 12:18 Order name: Flu; Complete Time: 14:23 [facility] 05/19 12:18 Order name: SARS-COV-2 RT PCR (Document "Date of Onset" if Symptomatic); Complete Time: percy 14:23 05/19 12:18 Order name: D-Dimer; Complete Time: 14:23 [facility] 05/19 12:19 Order name: Basic Metabolic Panel; Complete Time: 14:23 [facility] 05/19 13:25 Order name: CT Chest For PE Angio; Complete Time: 14:40 [facility] 05/19 12:18 Order name: EKG; Complete Time: 12:19 [facility] 05/19 12:18 Order name: Cardiac monitoring; Complete Time: 13:20 [facility] 05/19 12:18 Order name: EKG - Nurse/Tech; Complete Time: 14:37 [facility] 05/19 12:18 Order name: IV Saline Lock; Complete Time: 13:20 [facility] 05/19 12:18 Order name: Labs collected and sent; Complete Time: 13:20 [facility] 05/19 12:18 Order name: O2 Per Protocol; Complete Time: 12:29 [facility] 05/19 12:18 Order name: O2 Sat Monitoring; Complete Time: 12:29 [facility] 05/19 13:25 Order name: US Extremity Venous W Compression Refug[place]; Complete Time: 14:40 [facility] EC:01 Rate is 66 beats/min. Rhythm is irregularly irregular. QRS [place] is Normal. CA interval percy is normal. QRS interval is normal. QT interval is normal. No Q waves. T waves are Normal. No ST changes noted. Clinical impression: Atrial Fibrillation and No evidence of ischemia. Interpreted by me. Reviewed by me. Administered Medications: 14:41 Discontinued: NS 0.9% 1000 ml IV at 125 ml/hr continuous percy 13:13 Drug: NS 0.9% 1000 ml Route: IV; Rate: 125 ml/hr; Site: left antecubital; sl2 15:18 CANCELLED (Duplicate Order): predniSONE 20 mg PO once percy 15:45 Drug: Xopenex (levalbuterol) 2.5 mg Route: Inhalation; iw 16:04 Follow up: Response: No adverse reaction sl2 15:45 Drug: AtroVENT (ipratropium) Aerosol 0.5 mg Route: Inhalation; iw 16:04 Follow up: Response: No adverse reaction sl2 15:45 Drug: Lasix (furosemide) 20 mg Route: IVP; Site: left antecubital; iw 16:04 Follow up: Response: No adverse reaction sl2 15:45 Drug: Potassium Effervescent Tablet 25 mEq Route: PO; iw 16:04 Follow up: Response: No adverse reaction sl2 15:45 Drug: predniSONE 40 mg Route: PO; iw 16:04 Follow up: Response: No adverse reaction sl2 15:50 Drug: SOLU-Medrol (methylPrednisoLONE) 125 mg Route: IVP; Site: left antecubital; iw 16:04 Follow up: Response: No adverse reaction sl2 Disposition Summary: 05/19/21 15:11 Discharge Ordered Location: Home percy Problem: new percy Symptoms: have improved percy Condition: Stable percy Diagnosis - Systolic (congestive) heart failure percy - COPD/ Chronic obstructive pulmonary disease with (acute) exacerbation percy - Chronic atrial fibrillation percy - Hypokalemia percy Followup: percy - With: Private Physician - When: 2 - 3 days - Reason: Recheck today's complaints, Continuance of care, Re-evaluation by your physician Followup: percy - With: Babar Russell MD - When: 2 - 3 days - Reason: Recheck today's complaints, Continuance of care, Re-evaluation by your physician Followup: percy - With: Peewee Luis MD - When: 2 - 3 days - Reason: Recheck today's complaints, Continuance of care, Re-evaluation by your physician Discharge Instructions: - Discharge Summary Sheet percy - Chronic Obstructive Pulmonary Disease percy - Heart Failure, Diagnosis percy - Potassium Content of Foods percy - Chronic Obstructive Pulmonary Disease Exacerbation percy - Chronic Obstructive Pulmonary Disease, [id number] percy - Cough, Adult, [id number] percy - Heart Failure, Diagnosis, [id number] percy - Cough, Adult percy - Heart Failure, Self Care, [id number] percy - Living With Heart Failure percy Forms: - Medication Reconciliation Form percy - Thank You Letter percy - Antibiotic Education percy - Prescription Opioid Use [facility] Prescriptions: - albuterol sulfate 90 mcg/actuation Inhalation HFA aerosol inhaler - inhale 2 puff by INHALATION route every 6 hours; 1 Pump; Refills: 0, Product percy Selection Permitted - Prednisone 20 mg Oral Tablet - take 1 tablet by ORAL route once daily for 7 days; 7 tablet; Refills: 0, percy Product Selection Permitted - Lasix 20 mg Oral Tablet - take 1 tablet by ORAL route once daily; 20 tablet; Refills: 0, Product percy Selection Permitted - Potassium Chloride 20 meq Oral Packet - take 1 packet by ORAL route once daily 1 packet in 6 (six) ounces of water or percy juice; Take after meal; 20 packet; Refills: 0, Product Selection Permitted - Albuterol Sulfate 2.5 mg /3 mL (0.083 %) Inhalation Solution for Nebulization - inhale 1 unit by NEBULIZATION route every 8 hours As needed; 1 box; Refills: 0, [facility] Product Selection Permitted - levofloxacin 250 mg Oral Tablet - take 1 tablet by ORAL route once daily; 9 tablet; Refills: 0, Product Selection percy Permitted Signatures: Dispatcher [employer] Hank Cortés MD MD cha Williams, Irene, RN RN iw Landell, Sophia, RN RN sl2 Corrections: (The following items were deleted from the chart) 15:18 14:40 predniSONE 20 mg PO once ordered. percy greer
[2021-05-19] MEDS ORDERED: IPRATROPIUM BROM 0.5MG/2.5ML ONE (15:29)
[2021-05-19] MEDS ORDERED: POTASSIUM CL SA 10 MEQ TAB PO ONE (15:37)
[2021-05-19] MEDS ORDERED: POTASSIUM 25 MEQ EFFERV TAB ONE (15:40)
[2021-05-19 16:25] VITALS: O2SAT 98
[2021-05-19 16:27] VITALS: BP 166/76; TEMP 97.9
[2021-05-19] MEDS ORDERED: ALTEPLASE 100 ML IV ONE (16:51)
[2021-05-19] MEDS ORDERED: NA CHLORIDE 0.9% 100 ML ONE (16:52)
[2021-05-19] MEDS ORDERED: LABETALOL 20 MG/4ML SYRINGE IV ONE ×3 (16:58→17:59)
[2021-05-19] MEDS ORDERED: Nicardipine/NS 25 MG/250 ML KIT IV ONE (17:26)
[2021-05-19] MEDS ORDERED: ONDANSETRON 4 MG/2 ML VIAL ONE (17:27)
--- NOTE | 2021-05-20 13:13 | EKG ---
Test Date: 2021-05-19 Test Time: 13:35:58 Range Aide: OLLIE MEASUREMENT RESULTS: Intervals: Rate: 66 MS: QRSD: 82 QT: 442 QTc: 463 [place]: P: MS: QRS: 36 T: 225 INTERPRETIVE STATEMENTS: Atrial fibrillation ST & T wave abnormality, consider inferior ischemia or digitalis effect ST & T wave abnormality, consider anterolateral ischemia or digitalis effect Abnormal ECG Compared to ECG 10/04/2020 00:15:40 Possible ischemia now present ST (T wave) deviation still present Electronically Signed On 05-20-21 13:10:35 CDT by Peewee Luis
== END 2021-05-19 16:11 | disposition home or self-care (01) ==
LOC: ER 11:44
DX: J44.1 Chronic obstructive pulmonary disease with (acute) exacerbation (principal); I50.20 Unspecified systolic (congestive) heart failure; E87.6 Hypokalemia; I48.20 Chronic atrial fibrillation, unspecified; I10 Essential (primary) hypertension; Z79.01 Long term (current) use of anticoagulants; Z88.8 Allergy status to other drugs, medicaments and biological substances; Z20.822 Contact with and (suspected) exposure to COVID-19
CPT/HCPCS: 93005; 87040 ×2; 85025; 80048; 36415; 83735; 85610; 85379; 80076; 84484; 83880; 87804 ×2; 71275; 71045; 93970; 96375; 96374; 99285; U0003; Q9967; J2997; J1940; J7030; J2930; J2405; J7512

== ENCOUNTER 2021-12-28 10:04 | Emergency (ER) | payer OTHER ==
--- OUTSIDE RECORDS SUMMARY | 2021-12-28 10:06 | XMS REPORT | Continuity of Care Document ---
:1940 Author Organization [facility] t Address [address] [place] [address] Care Team Providers Name Role Phone BRIAN Attending Clinician Unavailable JOSÉ Attending Clinician Unavailable JOSÉ Admitting Clinician Unavailable Problems This patient has no known problems. Allergies, Adverse Reactions, Alerts This patient has no known allergies or adverse reactions. Medications This patient has no known medications. Procedures This patient has no known procedures. Encounters Start End Encounter Admission Attending Care Care Encounter Source Date/Time Date/Time Type Type Clinicians Facility Department ID 2021-09-25 2021-09-25 Outpatient [facility] [id number] 00:00:00 00:00:00 DENA [address] 2019-10-15 2019-10-15 Outpatient [facility] [id number] 00:00:00 00:00:00 FILI [address] 2019-05-08 2019-05-08 Outpatient [facility] [id number] 00:00:00 00:00:00 DENA [address] 2019-04-26 2019-04-26 Outpatient [facility] [id number] 00:00:00 00:00:00 DENA [address] Results This patient has no known results.
[2021-12-28 11:10] LABS: Absolute Lymphocytes (CBC) 0.7 K/uL (0.7-4.9); Hematocrit 41.4 % (36.0-45.0); Lymphocytes % 6.1 % (15.3-44.8); MPV 7.7 fL (7.6-11.3); RBC Red Blood Cell Count 4.46 M/uL (3.86-4.86)
[2021-12-28 11:43] LABS: Albumin 3.6 g/dL (3.4-5.0); Bilirubin Total 1.2 mg/dL (0.2-1.0); Potassium 3.5 mmol/L (3.5-5.1); Protein, Total 7.3 g/dL (6.4-8.2); Troponin High Sensitivity 12.6 pg/mL (<58.9)
--- NOTE | 2021-12-28 12:51 | RAD REPORT ---
EXAM DESCRIPTION: CT - Angio Aorta For Dissection - 12/28/2021 12:30 pm CLINICAL HISTORY: Chest pain radiating to the back. chest/back/abd pain COMPARISON: Angio Aorta For Dissection dated 09/27/2019 TECHNIQUE: CT angiography of the aorta was performed with MIPs. All CT scans are performed using dose optimization technique as appropriate and may include automated exposure control or mA/KV adjustment according to patient size. FINDINGS: A left aortic arch is present with normal branching pattern of the great vessels.No acute aortic finding is seen such as aneurysm, penetrating ulcer or dissection. The celiac axis, SMA, KWADWO and renal arteries are patent. Atherosclerosis is present at the origin of the visceral arteries as w ell as the abdominal aorta and iliac arteries. No evidence of pulmonary embolism. The lungs are mildly emphysematous. Left atrium appears enlarged. Mild fatty liver is present. The liver parenchyma is mildly heterogenous. Low-density liver lesions a re present compatible with cysts. Cholecystectomy.The spleen, pancreas, adrenal glands kidneys are wi thin normal limits. No bowel obstruction, free fluid or abscess.There is significant stool in the sigmoid colon with adva nced diverticulosis present.No pathologic enlarged lymphadenopathy identified. Moderate lumbar degenerative changes. Diffuse osteopenia is seen. IMPRESSION: No acute aortic finding is demonstrated. Prominent stool retention in the sigmoid colon with advanced diverticulosis coli.
[2021-12-28 13:24] LABS: Urine Blood 2+ (Negative); Urine Glucose Negative (Negative); Urine Protein 2+ (Negative)
--- NOTE | 2021-12-28 13:49 | EDPHYS ---
Physician Documentation [facility] Name: Marisela Sullivan Age: 81 yrs Sex: Female : 1940 Arrival Date: 12/28/2021 Time: 10:08 Bed 6 Private MD: ED Physician Tay Russell HPI: 12/28 13:41 This 81 yrs old Female presents to ER via Ambulatory with complaints of Chest Pain, rn Abdominal Pain. 13:43 The patient or guardian reports chest pain that is located primarily in the left chest, rn left flank. Onset: yesterday. The pain does not radiate. Associated signs and symptoms: Pertinent positives: abdominal pain, Pertinent negatives: dizziness, lower extremity pain, lower extremity swelling, lightheadedness, shortness of breath, syncope. The chest pain is described as aching. Modifying factors: The symptoms are alleviated by nothing. the symptoms are aggravated by nothing. Severity of pain: At its worst the pain was mild in the emergency department the pain is unchanged. The patient has experienced similar episodes in the past. The patient has not recently seen a physician. Historical: - Allergies: 10:35 No Known Allergies; vg1 - Home Meds: 10:35 Eliquis Oral daily [Active]; losartan Oral once daily [Active]; Verapamil Oral vg1 [Active]; Nitrofurantoin Macrocrystal Oral [Active]; zolpidem 10 mg Oral tab 1 tab PRN [Active]; 11:06 Advair Diskus 250-50 mcg/dose Inhl dsdv 1 puff 2 times per day [Active]; Advair Diskus jg9 Inhl [Active]; verapamil 240 mg Oral TbER 1 tab twice a day [Active]; - PMHx: 10:35 Asthma; Atrial Fib; COPD; GALLSTONES; Hypertension; Chronic UTI; vg1 - PSHx: 10:35 hysterectomy; vg1 - Immunization history:: Client reports receiving the 2nd dose of the Covid vaccine. - Social history:: Smoking status: Patient denies any tobacco usage or history of. - Family history:: not pertinent. - Hospitalizations: : No recent hospitalization is reported. ROS: 13:43 Constitutional: Negative for fever, chills, and weight loss, Eyes: Negative for injury, rn pain, redness, and discharge, Neck: Negative for injury, pain, and swelling, Cardiovascular: Negative for palpitations, and edema, Respiratory: Negative for shortness of breath, cough, wheezing, and pleuritic chest pain, Abdomen/GI: Negative for abdominal pain, nausea, vomiting, diarrhea, and constipation, Back: + left flank pain : Negative for injury, bleeding, discharge, and swelling, MS/Extremity: Negative for injury and deformity, Skin: Negative for injury, rash, and discoloration, Neuro: Negative for headache, weakness, numbness, tingling, and seizure. Exam: 13:43 Constitutional: This is a well developed, well nourished patient who is awake, alert, rn and in no acute distress. Head/Face: Normocephalic, atraumatic. Eyes: Pupils equal round and reactive to light, extra-ocular motions intact. Cardiovascular: Regular rate and rhythm. No pulse deficits. Respiratory: Lungs have equal breath sounds bilaterally, clear to auscultation and percussion. No rales, rhonchi or wheezes noted. No increased work of breathing, no retractions or nasal flaring. Abdomen/GI: soft, non-tender Skin: Warm, dry MS/ Extremity: Pulses equal, no cyanosis. Neuro: Awake and alert, GCS 15, oriented to person, place, time, and situation. Cranial nerves II-XII grossly intact. Motor strength 5/5 in all extremities. Sensory grossly intact Vital Signs: 10:33 BP 144 / 98; Pulse 107; Resp 16; Temp 98.7(O); Pulse Ox 97% on R/A; Weight 48.99 kg; vg1 Height 5 ft. 2 in. (157.48 cm); Pain 6/10; 11:00 BP 158 / 93; Pulse 101; Resp 17 S; Pulse Ox 98% on R/A; Pain 6/10; jg9 12:00 BP 156 / 87; Pulse 99; Resp 17 S; Pulse Ox 98% on R/A; jg9 14:00 BP 148 / 78; Pulse 95; Resp 16 S; Pulse Ox 95% on R/A; jg9 10:33 Body Mass Index 19.75 (48.99 kg, 157.48 cm) vg1 MDM: 10:37 Patient medically screened. rn 13:43 Differential diagnosis: acute myocardial infarction, acute pericarditis, chest wall rn pain, costochondritis, esophagitis, gastritis, gastroesophageal reflux disease (GERD), pancreatitis, peptic ulcer disease, pericarditis, pleurisy, pneumothorax, thoracic aortic disection. Data reviewed: vital signs, nurses notes, lab test result(s), EKG, radiologic studies, CT scan, plain films, and as a result, I will discharge patient. Counseling: I had a detailed discussion with the patient and/or guardian regarding: the historical points, exam findings, and any diagnostic results supporting the discharge/admit diagnosis, lab results, radiology results, the need for outpatient follow up, to return to the emergency department if symptoms worsen or persist or if there are any questions or concerns that arise at home. Response to treatment: the patient's symptoms have mildly improved after treatment, and as a result, I will discharge patient. Special discussion: I discussed with the patient/guardian in detail that at this point there is no indication for admission to the hospital. It is understood, however, that if the symptoms persist or worsen the patient needs to return immediately for re-evaluation. 12/28 10:49 Order name: CBC with Diff; Complete Time: 12:12 rn 12/28 10:49 Order name: CMP; Complete Time: 12:12 rn 12/28 10:49 Order name: Lipase; Complete Time: 12:12 rn 12/28 10:49 Order name: Urine Microscopic Only 12/28 10:50 Order name: Troponin High Sensitivity; Complete Time: 12:12 rn 12/28 10:50 Order name: BNP; Complete Time: 12:12 12/28 10:50 Order name: IV Saline Lock; Complete Time: 12:30 rn 12/28 10:50 Order name: Labs collected and sent; Complete Time: 12:30 rn 12/28 10:50 Order name: Urine Dipstick-Ancillary (obtain specimen); Complete Time: 13:25 rn 12/28 10:50 Order name: CT Aorta for Dissection; Complete Time: 12:53 rn 12/28 10:50 Order name: EKG; Complete Time: 10:50 rn 12/28 10:50 Order name: EKG - Nurse/Tech; Complete Time: 12:30 rn 12/28 13:24 Order name: Urine Dipstick-Ancillary; Complete Time: 13:42 EDMS Administered Medications: 14:20 Drug: Rocephin (cefTRIAXone) 1 grams Route: IV; Rate: calculated rate; Site: right jg9 antecubital; 14:29 Follow up: IV Status: Completed infusion; IV Intake: 10ml jg9 Disposition Summary: 12/28/21 13:48 Discharge Ordered Location: Home rn Problem: new rn Symptoms: are unchanged rn Condition: Stable rn Diagnosis - Chest pain, unspecified rn - Abdominal pain, unspecified rn - UTI/ Urinary tract infection, site not specified rn Followup: rn - With: Private Physician - When: As needed - Reason: Recheck today's complaints, Re-evaluation by your physician Discharge Instructions: - Discharge Summary Sheet rn - Abdominal Pain, Adult rn - Nonspecific Chest Pain, Adult rn - Urinary Tract Infection, Adult rn Forms: - Medication Reconciliation Form rn - Thank You Letter rn - Antibiotic patternmaker grader - Prescription Opioid Use rn Prescriptions: - cefpodoxime 100 mg Oral Tablet - take 2 tablets by ORAL route every 12 hours for 10 days take with food; 40 rn tablet; Refills: 0, Product Selection Permitted Signatures: Dispatcher [employer] EDTay Villanueva MD MD rn Garcia, Victoria RN RN vg1 Olivia Hayden RN RN jg9 Corrections: (The following items were deleted from the chart) 10:37 10:35 Allergies: Norvasc; vg1 vg1
--- NOTE | 2021-12-28 13:49 | ER ---
Nurse's Notes [facility] Name: Marisela Sullivan Age: 81 yrs Sex: Female : 1940 Arrival Date: 12/28/2021 Time: 10:08 Bed 6 Private MD: Diagnosis: Chest pain, unspecified;Abdominal pain, unspecified;UTI/ Urinary tract infection, site not specified Presentation: 12/28 10:33 Chief complaint: Patient states: CP began last night with SOB and nausea, denies vg1 radiation; ABD pain began "for a couple of months" States headache and SOB, denies cough. Coronavirus screen: Vaccine status: Patient reports receiving the 2nd dose of the covid vaccine. Client denies travel out of the [place] in the last 14 days. Ebola Screen: Patient denies exposure to infectious person. Patient denies travel to an Ebola-affected area in the 21 days before illness onset. Initial Sepsis Screen: Does the patient meet any 2 criteria? No. Patient's initial sepsis screen is negative. Does the patient have a suspected source of infection? No. Patient's initial sepsis screen is negative. Risk Assessment: Do you want to hurt yourself or someone else? Patient reports no desire to harm self or others. Onset of symptoms was December 27, 2021. 10:33 Method Of Arrival: Ambulatory vg1 10:33 Acuity: RIYA 2 vg1 Triage Assessment: 10:35 General: Appears comfortable, Behavior is calm, cooperative. Pain: Complains of pain in vg1 chest, right lower quadrant and left lower quadrant. Cardiovascular: Reports chest pain, nausea, shortness of breath, Patient's skin is warm and dry. Historical: - Allergies: 10:35 No Known Allergies; vg1 - Home Meds: 10:35 Eliquis Oral daily [Active]; losartan Oral once daily [Active]; Verapamil Oral vg1 [Active]; Nitrofurantoin Macrocrystal Oral [Active]; zolpidem 10 mg Oral tab 1 tab PRN [Active]; 11:06 Advair Diskus 250-50 mcg/dose Inhl dsdv 1 puff 2 times per day [Active]; Advair Diskus jg9 Inhl [Active]; verapamil 240 mg Oral TbER 1 tab twice a day [Active]; - PMHx: 10:35 Asthma; Atrial Fib; COPD; GALLSTONES; Hypertension; Chronic UTI; vg1 - PSHx: 10:35 hysterectomy; vg1 - Immunization history:: Client reports receiving the 2nd dose of the Covid vaccine. - Social history:: Smoking status: Patient denies any tobacco usage or history of. - Family history:: not pertinent. - Hospitalizations: : No recent hospitalization is reported. Screenin:57 Abuse screen: Denies threats or abuse. Denies injuries from another. Nutritional jg9 screening: No deficits noted. Tuberculosis screening: No symptoms or risk factors identified. Fall Risk None identified. Assessment: 10:58 Pain: Pain began 2-3 days ago. jg9 10:58 Pain: Complains of pain in chest Pain does not radiate. Pain at worst was 7 out of 10 jg9 on a pain scale. 12:00 Reassessment: No changes from previously documented assessment. Patient and/or family jg9 updated on plan of care and expected duration. Pain level reassessed. Patient is alert, oriented x 3, equal unlabored respirations, skin warm/dry/pink. 13:00 Reassessment: No changes from previously documented assessment. Patient and/or family jg9 updated on plan of care and expected duration. Pain level reassessed. Patient is alert, oriented x 3, equal unlabored respirations, skin warm/dry/pink. 14:00 Reassessment: No changes from previously documented assessment. Patient and/or family jg9 updated on plan of care and expected duration. Pain level reassessed. Patient is alert, oriented x 3, equal unlabored respirations, skin warm/dry/pink. Vital Signs: 10:33 BP 144 / 98; Pulse 107; Resp 16; Temp 98.7(O); Pulse Ox 97% on R/A; Weight 48.99 kg; vg1 Height 5 ft. 2 in. (157.48 cm); Pain 6/10; 11:00 BP 158 / 93; Pulse 101; Resp 17 S; Pulse Ox 98% on R/A; Pain 6/10; jg9 12:00 BP 156 / 87; Pulse 99; Resp 17 S; Pulse Ox 98% on R/A; jg9 14:00 BP 148 / 78; Pulse 95; Resp 16 S; Pulse Ox 95% on R/A; jg9 10:33 Body Mass Index 19.75 (48.99 kg, 157.48 cm) vg1 ED Course: 10:08 Patient arrived in ED. mr 10:35 Triage completed. vg1 10:35 Arm band placed on. vg1 10:37 Tay Russell MD is Attending Physician. rn 10:50 Inserted saline lock: 20 gauge in right antecubital area, using aseptic technique. jg9 Blood collected. 10:57 Olivia Hayden, RN is Primary Nurse. jg9 10:57 Patient has correct armband on for positive identification. Placed in gown. Bed in low jg9 position. Call light in reach. Side rails up X 1. 10:58 Client placed on continuous cardiac and pulse oximetry monitoring. NIBP monitoring jg9 applied. 10:58 Patient maintains SpO2 saturation greater than 95% on room air. jg9 12:32 CT Aorta for Dissection In Process Unspecified. EDMS 14:31 No provider procedures requiring assistance completed. IV discontinued, intact, jg9 bleeding controlled, No redness/swelling at site. Administered Medications: 14:20 Drug: Rocephin (cefTRIAXone) 1 grams Route: IV; Rate: calculated rate; Site: right jg9 antecubital; 14:29 Follow up: IV Status: Completed infusion; IV Intake: 10ml jg9 Medication: 10:58 VIS not applicable for this client. jg9 Intake: 14:29 IV: 10ml; Total: 10ml. jg9 Outcome: 13:48 Discharge ordered by . rn 14:31 Discharged to home via wheelchair. jg9 14:31 Condition: stable 14:31 Discharge instructions given to patient, Instructed on discharge instructions, follow up and referral plans. Demonstrated understanding of instructions, follow-up care, medications, Prescriptions given X 1. 14:36 Patient left the ED. jg9 Signatures: Dispatcher [employer] EDWY Yanet Harmon mr Tay Russell MD MD rn Garcia, Victoria, RN RN vg1 Olivia Hayden, BRYNN RN jg9 Corrections: (The following items were deleted from the chart) 10:37 10:35 Allergies: Norvasc; vg1 vg1
[2021-12-28] MEDS ORDERED: CEFTRIAXONE 1000 MG/VIAL ONE (14:18)
[2021-12-28 14:43] LABS: Urine Bacteria LOADED /HPF (<20); Urine RBC <5 /HPF (NONE SEEN)
[2021-12-28 14:46] VITALS: TEMP 98.7
[2021-12-28 14:51] VITALS: BP 148/78; O2SAT 95
--- NOTE | 2021-12-29 11:08 | EKG ---
Test Date: 2021-12-28 Test Time: 10:41:18 Printed Circuit Board Pcb Designer: GLENNA MEASUREMENT RESULTS: Intervals: Rate: 105 DC: QRSD: 80 QT: 364 QTc: 481 [place]: P: DC: QRS: 11 T: -50 INTERPRETIVE STATEMENTS: Atrial fibrillation with rapid ventricular response Nonspecific ST and T wave abnormality Abnormal ECG Compared to ECG 05/19/2021 13:35:58 Possible ischemia no longer present ST (T wave) deviation still present Electronically Signed On 12-29-21 11:05:05 CDT by Peewee Luis
== END 2021-12-28 14:36 | disposition home or self-care (01) ==
LOC: ER 10:04
DX: N39.0 Urinary tract infection, site not specified (principal); R07.9 Chest pain, unspecified; R10.9 Unspecified abdominal pain; J45.909 Unspecified asthma, uncomplicated; I10 Essential (primary) hypertension; I48.91 Unspecified atrial fibrillation
CPT/HCPCS: 93005; 87088; 85025; 87086; 36415; 84484; 83690; 80053; 83880; 71275; 74175; Q9967; 81003; 81015; 87077; 87186; 96374; 99284

== ENCOUNTER 2022-01-08 15:03 | Emergency (ER) | payer OTHER ==
--- OUTSIDE RECORDS SUMMARY | 2022-01-08 15:07 | XMS REPORT | Continuity of Care Document ---
:1940 Author Organization [facility] t Address [address] [place] [address] [address] [place] [address] Care Team Providers Name Role Phone BRIAN [...] Clinicians Facility Department ID 2021-09-25 2021-09-25 Outpatient [facility] [id number] [place] 00:00:00 00:00:00 DENA [address] 2019-10-15 2019-10-15 [facility] [id number] [place] 00:00:00 00:00:00 FILI [address] 2019-05-08 2019-05-08 Outpatient [facility] [id number] [place] 00:00:00 00:00:00 DENA [address] 2019-04-26 2019-04-26 Outpatient [facility] [id number] [place] 00:00:00 00:00:00 DENA [address] Results This patient has no known results.
--- NOTE | 2022-01-08 17:46 | RAD REPORT ---
EXAM DESCRIPTION: RAD - Abdomen 1 View (KUB) - 01/08/2022 5:31 pm CLINICAL HISTORY: CONSTIPATION COMPARISON: No comparisons FINDINGS: Moderate stool volume is present throughout the nondilated colon from cecum to rectum. A f ew nondilated air-filled small bowel loops are present. No acute obstruction changes seen. Stomach is normal size. No free air or pneumatosis. No suspicious calcifications. Disc and bone degenerative changes are present. Left convex scoliotic curvature is seen. Cholecystect ronny clips are present in the right upper quadrant. Aortic atherosclerotic calcifications are present. IMPRESSION: Moderate stool volume throughout the colon from cecum to rectum.
[2022-01-08] MEDS ORDERED: FLEET ENEMA ADULT PR ONE ×2 (18:12→19:07)
[2022-01-08] MEDS ORDERED: MAGNESIUM CITRATE 300 ML BOT ONE (19:08)
--- NOTE | 2022-01-08 19:45 | ER ---
Nurse's Notes [facility] Name: Marisela Sullivan Age: 81 yrs Sex: Female : 1940 Arrival Date: 01/08/2022 Time: 15:10 Bed 2 Private MD: Diagnosis: Constipation Presentation: 01/08 16:08 Chief complaint: Patient states: Sent by PCP for enema, last BM 11 days ago. jl7 Coronavirus screen: At this time, the client does not indicate any symptoms associated with coronavirus-19. Ebola Screen: No symptoms or risks identified at this time. Initial Sepsis Screen: Does the patient meet any 2 criteria? No. Patient's initial sepsis screen is negative. Does the patient have a suspected source of infection? No. Patient's initial sepsis screen is negative. Risk Assessment: Do you want to hurt yourself or someone else? Patient reports no desire to harm self or others. Onset of symptoms was December 30, 2021. Care prior to arrival: None. 16:08 Method Of Arrival: Ambulatory [facility] 16:08 Acuity: RIYA 3 jl7 Triage Assessment: 16:10 General: Appears in no apparent distress. uncomfortable, Behavior is calm, cooperative, jl7 appropriate for age. Pain: Complains of pain in abdomen diffusely Pain currently is 6 out of 10 on a pain scale. GI: Reports constipation. Historical: - Allergies: 16:10 No Known Allergies; jl7 - PMHx: 16:10 Asthma; Atrial Fib; chronic uti; COPD; GALLSTONES; Hypertension; jl7 - PSHx: 16:10 hysterectomy; jl7 - Immunization history:: Client reports receiving the 2nd dose of the Covid vaccine. - Social history:: Smoking status: Patient denies any tobacco usage or history of. Screenin:56 Abuse screen: Denies threats or abuse. Nutritional screening: No deficits noted. ll3 Tuberculosis screening: No symptoms or risk factors identified. Fall Risk No fall in past 12 months (0 pts). No secondary diagnosis (0 pts). No IV (0 pts). Ambulatory Aid- Crutches/Cane/Walker (15 pts). Gait- Normal/Bed Rest/Wheelchair (0 pts) Mental Status- Oriented to own ability (0 pts). Total Wiley Fall Scale indicates No Risk (0-24 pts). Assessment: 16:11 Reassessment: ORESTES Whelan in triage assessing pt. jl7 Vital Signs: 16:08 BP 156 / 85; Pulse 96; Resp 15; Temp 97.4; Pulse Ox 99% ; Weight 48.53 kg; Height 5 ft. jl7 2 in. (157.48 cm); Pain 6/10; 16:08 Body Mass Index 19.57 (48.53 kg, 157.48 cm) jl7 ED Course: 15:10 Patient arrived in ED. am2 15:42 Cleopatra Tobin FNP-C is PHCP. kb 15:43 Tay Russell MD is Attending Physician. kb 16:10 Triage completed. jl7 16:10 Arm band placed on right wrist. Patient placed in waiting room, Patient notified of jl7 wait time. 17:33 Abdomen 1 View (KUB) XRAY In Process Unspecified. EDMS 18:02 Wilder Zelaya, RN is Primary Nurse. bp 18:29 Bed in low position. Call light in reach. Side rails up X 1. Door closed. Noise mb7 minimized. Warm blanket given. 19:56 No provider procedures requiring assistance completed. Patient did not have IV access ll3 during this emergency room visit. Administered Medications: 18:16 Drug: Fleet Enema (sodium phosphate) 133 ml Route: CT; bp 19:44 Not Given (Patient Refused): Magnesium Citrate Liquid 300 ml PO once kb Medication: 19:57 VIS not applicable for this client. ll3 Outcome: 19:44 Discharge ordered by . kb 19:56 Discharged to home ambulatory. ll3 19:56 Condition: stable 19:56 Discharge instructions given to patient, Instructed on discharge instructions, follow up and referral plans. Demonstrated understanding of instructions, follow-up care. 19:58 Patient left the ED. ll3 Signatures: Dispatcher [employer] EDMS Cleopatra Tobin FNP-C FNP-Charlette Meng RN RN jl7 Sharon Garcia am2 Wilder Zelaya, RN RN Summer Bass RN RN ll3 Yanet Thornton mb7
--- NOTE | 2022-01-08 19:45 | EDPHYS ---
Physician Documentation [facility] Name: Marisela Sullivan Age: 81 yrs Sex: Female : 1940 Arrival Date: 01/08/2022 Time: 15:10 Bed 2 Private MD: ED Physician Tay Russell HPI: 01/09 00:40 This 81 yrs old Female presents to ER via Ambulatory with complaints of Constipation. kb 01/08 16:09 "I'm here for an enema." Reports last BM was 11 days ago, has been trying different kb things at home that her dr recommended but they haven't helped. Talked to her dr today and was told to come to the ER for an enema. 01/09 00:40 The patient presents with constipation. Onset: The symptoms/episode began/occurred 11 kb day(s) ago. The symptoms do not radiate. Associated signs and symptoms: Pertinent positives: constipation, Pertinent negatives: nausea, vomiting, and diarrhea. The symptoms are described as achy. Modifying factors: The symptoms are alleviated by nothing, the symptoms are aggravated by nothing. Severity of pain: At its worst the pain was very mild in the emergency department the pain is unchanged. The patient has not experienced similar symptoms in the past. The patient has not recently seen a physician. Historical: - Allergies: 01/08 16:10 No Known Allergies; jl7 - PMHx: 16:10 Asthma; Atrial Fib; chronic uti; COPD; GALLSTONES; Hypertension; jl7 - PSHx: 16:10 hysterectomy; jl7 - Immunization history:: Client reports receiving the 2nd dose of the Covid vaccine. - Social history:: Smoking status: Patient denies any tobacco usage or history of. ROS: 01/09 00:40 Constitutional: Negative for fever, chills, and weight loss. kb Abdomen/GI: Positive for constipation, Negative for abdominal pain, nausea, vomiting, and diarrhea. All other systems are negative. Exam: 00:40 Constitutional: This is a well developed, well nourished patient who is awake, alert, kb and in no acute distress. Head/Face: Normocephalic, atraumatic. ENT: Moist Mucous membranes Cardiovascular: Regular rate and rhythm with a normal S1 and S2. No gallops, murmurs, or rubs. No pulse deficits. Respiratory: Respirations even and unlabored. No increased work of breathing. Talking in full sentences Abdomen/GI: Soft, non-tender. No distention Skin: Warm, dry with normal turgor. Normal color. MS/ Extremity: Pulses equal, no cyanosis. Neurovascular intact. Full, normal range of motion. Neuro: Awake and alert, GCS 15, oriented to person, place, time, and situation. Moves all extremities. Normal gait. Psych: Awake, alert, with orientation to person, place and time. Behavior, mood, and affect are within normal limits. Vital Signs: 01/08 16:08 BP 156 / 85; Pulse 96; Resp 15; Temp 97.4; Pulse Ox 99% ; Weight 48.53 kg; Height 5 ft. jl7 2 in. (157.48 cm); Pain 6/10; 16:08 Body Mass Index 19.57 (48.53 kg, 157.48 cm) jl7 MDM: 16:12 Patient medically screened. kb 19:44 ED course: First enema was given to pt by nurse and pt gave it to herself in the restroom which yielded no results. I asked the nurse to give a second enema while pt was on stretcher at 1820. When I went in to discuss x-ray results with pt she said she didn't want another enema because it didn't do anything. I also offered magnesium citrate PO. Pt states she has that at home but hasn't tried it yet so she will do that, but doesn't want anything else done here. States she has people waiting on her and wants to leave now. . 01/09 00:40 Data reviewed: vital signs, nurses notes. Data interpreted: Pulse oximetry: on room air kb is 99 %. Interpretation: normal. Counseling: I had a detailed discussion with the patient and/or guardian regarding: the historical points, exam findings, and any diagnostic results supporting the discharge/admit diagnosis, radiology results, the need for outpatient follow up, a family practitioner, to return to the emergency department if symptoms worsen or persist or if there are any questions or concerns that arise at home. 01/08 16:09 Order name: Abdomen 1 View (KUB) XRAY; Complete Time: 17:47 kb Administered Medications: 01/08 18:16 Drug: Fleet Enema (sodium phosphate) 133 ml Route: VT; bp 19:44 Not Given (Patient Refused): Magnesium Citrate Liquid 300 ml PO once kb Disposition: 17:23 Co-signature as Attending Physician, Tay Russell MD. rn Disposition Summary: 01/08/22 19:44 Discharge Ordered Location: Home kb Condition: Stable kb Diagnosis - Constipation kb Followup: kb - With: Emergency Department - When: As needed - Reason: Worsening of condition Followup: kb - With: Private Physician - When: 2 - 3 days - Reason: Recheck today's complaints, Continuance of care, Re-evaluation by your physician Discharge Instructions: - Discharge Summary Sheet kb - Constipation, Adult, [id number] kb Forms: - Medication Reconciliation Form kb - Thank You Letter kb - Antibiotic Education kb - Prescription Opioid Use kb Signatures: Dispatcher [employer] EDMS Cleopatra Tobin, DECKHAND ENGINEER-C DECKHAND ENGINEER-Ckb Tay Russell MD MD rn Leal, Jahala, RN RN jl7 Wilder Zelaya, RN RN bp
[2022-01-08 20:19] VITALS: BP 156/85; TEMP 97.4; O2SAT 99
== END 2022-01-08 19:58 | disposition home or self-care (01) ==
LOC: ER 15:03
DX: K59.00 Constipation, unspecified (principal); I10 Essential (primary) hypertension; J44.9 Chronic obstructive pulmonary disease, unspecified; I48.91 Unspecified atrial fibrillation
CPT/HCPCS: 74018; 99283

== ENCOUNTER 2022-12-08 09:48 | Emergency (ER) | payer OTHER ==
--- OUTSIDE RECORDS SUMMARY | 2022-12-08 09:58 | XMS REPORT | Continuity of Care Document ---
:1940 Author Organization [facility] t Address [address] [place] [address] Care Team Providers Name Role Phone Dena Torres MD Primary Care Physician [phone] DENA TORRES Attending Clinician Unavailable FILI KUMAR Attending Clinician Unavailable FILI KUMAR Admitting Clinician Unavailable Problems Condition Condition Condition Status Onset Resolution Last Treating Co mments Source Name Details Category Date Date Treatment Clinician Date Frequent Frequent Disease Active 2020-0 Metho di UTI's, on UTI's, on 08-23 chronic chronic 00:00: Hospita suppressiv suppressiv 00 l e e antibiotic antibiotic therapy therapy Essential Essential Disease Active 2020-0 [facility] hypertensi hypertensi 2 on on 00:00: Hospita 00 l Paroxysmal Paroxysmal Disease Active 2020-0 M ethodi atrial atrial 2 fibrillati fibrillati 00:00: Ho spita on (HCC), on (HCC), 00 l on Eliquis on Eliquis anticoagul anticoagul ation ation History of History of Disease Active 2020-0 M ethodi rheumatic rheumatic 2 fever as a fever as a 00:00: Ho spita child child 00 l Other Other Disease Active 2020-0 [facility] hyperlipid hyperlipid 2 emia emia 00:00: Hospita 00 l Asthma Asthma Disease Active 2020-0 [facility] 2 00:00: Hospita 00 l Primary Primary Disease Active 2020-0 [facility] osteoarthr osteoarthr 2 itis itis 00:00: Hospita 00 l Glaucoma Glaucoma Disease Active 2020-0 Metho di 2 00:00: Hospita 00 l Macular Macular Disease Active 2020-0 [facility] degenerati degenerati 2-05 st on on 00:00: Hospita 00 l Cholelithi Cholelithi Disease Active M ethodi asis with asis with 2-05 st chronic chronic 00:00: Hospita cholecysti cholecysti 00 l tis tis Left Left Disease Active [facility] nephrolith nephrolith 2-05 st iasis, iasis, 00:00: Hospita non-obstru non-obstru 00 l cting 4 mm cting 4 mm stone, per stone, per 03/2019 CT 03/2019 CT Colonic Colonic Disease Active [facility] diverticul diverticul 2-05 st osis osis 00:00: Hospita 00 l Allergies, Adverse Reactions, Alerts This patient has no known allergies or adverse reactions. Family History Family Member Diagnosis Comments Start Date Stop Date Source Natural mother Heart disease [facility] Natural mother Breast cancer [facility] Natural sister Lung cancer [facility] Natural father [facility] Social History Social Habit Start Date Stop Date Quantity Comments Source Gender identity [facility] History of tobacco Current [facility] Alcohol intake 2019-10-15 2019-10-15 Lifetime [facility] 00:00:00 00:00:00 non-drinker Hospital (finding) History of Social 2019-10-15 2019-10-[address] function 00:00:00 00:00:00 Hospital Cigarette 2019-08-22 2019-08-22 [facility] pack-years 00:00:00 00:00:00 Hospital Tobacco use and 2019-08-22 2019-08-22 Smokeless [facility] exposure 00:00:00 00:00:00 tobacco non-user Hospital Tobacco Comment 2019-08-22 2019-08-22 20 pack years, [facility] dist 00:00:00 00:00:00 quit 20 years Hospital ago Cigarettes smoked 2019-08-22 2019-08-[address] current (pack per 00:00:00 00:00:00 Hospita l day) - Reported Sex Assigned At [birth year] [facility] 00:00:00 00:00:00 Hospital Smoking Status Start Date Stop Date Source Ex-smoker 2019-08-22 00:00:00 2019-08-22 00:00:00 [facility] Medications Ordered Filled Start Stop Current Ordering Indication Dosage Frequency Signature Comments Components Source Medication Medication Date Date Medication? Clinician (SIG) Name Name fluticasone 2020-0 Yes 1{puff} Q.5D Inhale 1 [facility] propion-nestor 3-[address] meterol 13:25: (two) Hospita (ADVAIR) 47 times a l 250-50 day. mcg/dose DISKUS cephalexin 2020-0 Yes 250mg QD Take 250 Me th[facility] (KEFLEX) 3-[address] 250 MG 13:25: mouth Hospita capsule 47 daily. l losartan 2020-0 Yes 50mg QD Take 50 mg Met hodi (COZAAR) 50 3-[address] MG tablet 13:25: daily. Hospit a 47 l bimatoprost 2020-0 Yes 1[drp] QD 1 drop [facility] (LUMIGAN) 3-[address] 0.01 % 13:25: Hospita ophthalmic 47 l drops albuterol 2020-0 Yes 2{puff} Q6H Inhale 2 M ethodi (PROAIR 3-[address] HFA) 90 13:25: every 6 Hospita mcg/actuati 47 (six) l on inhaler hours as needed. verapamil 2020-0 Yes 240mg Q.5D Take 240 Met [facility] sustained 3-[address] release 13:25: mouth 2 Hospita (CALAN-SR) 47 (two) l 240 MG SR times a tablet day. zolpidem 2020-0 Yes 10mg QD Take 10 mg Met hodi (AMBIEN) 10 3-[address] mg tablet 13:25: nightly as Ho spita 47 needed. l omeprazole 2020-0 Yes 40mg QD Take 40 mg M ethodi (PriLOSEC) 3-[address] 40 MG 13:25: daily. Hospita capsule 47 l Procedures This patient has no known procedures. Plan of Care Planned Activity Planned Date Details Comments Source Future Scheduled 2022-10-16 65+ PNEUMOCOCCAL [facility] Test 05:10:16 VACCINE (1 - PCV) [code = 65+ PNEUMOCOCCAL VACCINE (1 - PCV)] Future Scheduled 2022-10-16 SHINGLES VACCINES (1 Met [facility] Test 05:10:16 of 2) [code = SHINGLES VACCINES (1 of 2)] Future Scheduled 2022-10-16 COVID-19 VACCINE (3 - Me [facility] Test 05:10:16 Booster for Moderna series) [code = COVID-19 VACCINE (3 - Booster for Moderna series)] Future Scheduled 2022-10-16 INFLUENZA VACCINE [facility] Test 05:10:16 [code = INFLUENZA VACCINE] Encounters Start End Encounter Admission Attending Care Care Encounter Source Date/Time Date/Time Type Type Clinicians Facility Department ID 2021-09-25 2021-09-25 [id number] 00:00:00 00:00:[address] DENA [address] 2019-10-15 2019-10-15 Outpatient [facility] [id number] 00:00:00 00:00:00 FILI [address] 2019-05-08 2019-05-[address] [facility] [id number] 00:00:00 00:00:00 DENA [address] 2019-04-26 2019-04-26 Outpatient [facility] [id number] 00:00:00 00:00:[address] DENA [address] Results This patient has no known results.
[2022-12-08 11:21] LABS: Absolute Lymphocytes (CBC) 0.8 K/uL (0.7-4.9); Hematocrit 36.9 % (36.0-45.0); Lymphocytes % 9.3 % (15.3-44.8); MCV 93.5 fL (80-100); RBC Red Blood Cell Count 3.95 M/uL (3.86-4.86)
[2022-12-08 11:38] LABS: Albumin 3.4 g/dL (3.4-5.0); Bilirubin Total 0.6 mg/dL (0.2-1.0); Protein, Total 7.6 g/dL (6.4-8.2); Troponin High Sensitivity 11.4 pg/mL (<58.9)
--- NOTE | 2022-12-08 12:10 | RAD REPORT ---
EXAM DESCRIPTION: CT - Abdomen Pelvis W Contrast - 12/08/2022 11:46 am CLINICAL HISTORY: ABD PAIN COMPARISON: Abdomen Pelvis W Contrast dated 03/28/2016; CT ABD PELVIS W CONTRAST dated 10/13/2015 TECHNIQUE: Thin cut axial CT imaging of the abdomen and pelvis was performed following intravenous a dministration of 100 mL Isovue 300. Multiplanar reformats were generated and reviewed. All CT scans are performed using dose optimization technique as appropriate and may include automated exposure control or mA/KV adjustment according to patient size. FINDINGS: No suspicious findings in the lung bases. The liver, spleen, and pancreas show no suspicious findings. Stable left liver lobe 9 millimeter flui d density lesion suggestive of a small cyst. Status post cholecystectomy. Mild prominence of the intr a and extrahepatic biliary radicles, likely related to postcholecystectomy status. This is stable. Symmetric renal function is seen with no hydronephrosis or suspicious renal mass. No dilated bowel loops long segment wall thickening and mucosal hyperenhancement involving the entire ty of the sigmoid colon, with mild adventitial fat stranding. Mild colonic diverticulosis however wit h no focal inflamed diverticulum. No evidence of free air, free fluid, or a localized fluid collectio n. . No hernia, mass or bulky lymphadenopathy. The urinary bladder is without significant finding. No suspicious bony findings. IMPRESSION: Long segment of wall thickening and inflammation involving the entirety of the sigmoid c olon, suggestive of segmental nonspecific colitis. Other stable findings as above.
[2022-12-08] MEDS ORDERED: NA CHLORIDE 0.9% 1,000 ML ONE (13:28)
[2022-12-08] MEDS ORDERED: PIPERACIL/TAZO 3.375 GM VIAL IV ONE (13:28)
[2022-12-08] MEDS ORDERED: NA CHLORIDE 0.9% 100 ML ONE (13:28)
--- NOTE | 2022-12-08 14:58 | EDPHYS ---
Physician Documentation [facility] Name: Marisela Sullivan Age: 82 yrs Sex: Female : 1940 Arrival Date: 12/08/2022 Time: 09:48 Bed 17 Private MD: ED Physician Lorenzo Ferrari HPI: 12/08 10:43 This 82 yrs old Female presents to ER via Wheelchair with complaints of Bloody Stools. rt 10:43 Patient has been having bloody, loose stools described as red blood since the first of rt the month. Patient saw her primary, was referred to GI doctor to be seen on the . The patient developed abdominal pain, generalized starting today which prompted her to come to the ED for further evaluation. It has mostly subsided but still somewhat present. She denies constipation, urinary symptoms. Patient is on Eliquis. Denies other acute complaints at this time. Symptoms are moderate in severity, aching in nature, nonradiating, no other aggravating or alleviating factors. Historical: - Allergies: 10:12 No Known Allergies; iw - Home Meds: 10:12 Advair Diskus 250-50 mcg/dose Inhl dsdv 1 puff 2 times per day [Active]; Eliquis Oral iw daily [Active]; losartan Oral once daily [Active]; Verapamil Oral [Active]; verapamil 240 mg Oral TbER 1 tab twice a day [Active]; zolpidem 10 mg Oral tab 1 tab PRN [Active]; Advair Diskus Inhl [Active]; - PMHx: 10:12 Asthma; COPD; chronic uti; Atrial Fib; GALLSTONES; Hypertension; iw - PSHx: 10:12 hysterectomy; iw - Immunization history:: Adult Immunizations Client reports receiving the 1st dose of the Covid vaccine, Flu vaccine status is unknown. - Social history:: Smoking status: Patient/guardian denies using tobacco, the patient reports quitting approximately 30 years ago. - Family history:: not pertinent. ROS: 10:43 Constitutional: Negative for fever, chills, and weight loss, Cardiovascular: Negative rt for chest pain, palpitations, and edema, Respiratory: Negative for shortness of breath, cough, wheezing, and pleuritic chest pain, MS/Extremity: Negative for injury and deformity, Skin: Negative for injury, rash, and discoloration, Neuro: Negative for headache, weakness, numbness, tingling, and seizure, Psych: Negative for depression, anxiety, suicide ideation, homicidal ideation, and hallucinations. 10:43 Abdomen/GI: Positive for abdominal pain, Hematochezia. Exam: 10:43 Constitutional: This is a well developed, well nourished patient who is awake, alert, rt and in no acute distress. Head/Face: Normocephalic, atraumatic. Chest/axilla: Normal chest wall appearance and motion. Nontender with no deformity. No lesions are appreciated. Cardiovascular: Regular rate and rhythm with a normal S1 and S2. No gallops, murmurs, or rubs. Normal PMI, no JVD. No pulse deficits. Respiratory: Lungs have equal breath sounds bilaterally, clear to auscultation and percussion. No rales, rhonchi or wheezes noted. No increased work of breathing, no retractions or nasal flaring. Skin: Warm, dry with normal turgor. Normal color with no rashes, no lesions, and no evidence of cellulitis. MS/ Extremity: Pulses equal, no cyanosis. Neurovascular intact. Full, normal range of motion. Neuro: Awake and alert, GCS 15, oriented to person, place, time, and situation. Cranial nerves II-XII grossly intact. Motor strength 5/5 in all extremities. Sensory grossly intact. Cerebellar exam normal. Normal gait. Psych: Awake, alert, with orientation to person, place and time. Behavior, mood, and affect are within normal limits. 10:43 Abdomen/GI: Minimal tenderness diffusely without rebound, guarding, distention. 11:11 ECG was reviewed by the Attending Physician. rt Vital Signs: 10:11 BP 132 / 92; Pulse 97; Resp 16; Temp 97.4; Pulse Ox 98% on R/A; Weight 49.44 kg; Height iw 5 ft. 2 in. ; 11:19 Pulse 73; Pulse Ox 100% ; ap3 12:00 BP 147 / 92; Pulse 100; Resp 17; Pulse Ox 100% on R/A; vg1 13:11 BP 147 / 87; Pulse 103; Pulse Ox 99% on R/A; ap3 14:11 BP 142 / 82; Pulse 99; Pulse Ox 100% on R/A; ap3 10:11 Body Mass Index 19.94 (49.44 kg, 157.48 cm) iw MDM: 10:17 Patient medically screened. rt 14:10 Differential diagnosis: Colitis, diverticulitis, bowel obstruction. Data reviewed: rt vital signs, lab test result(s), EKG, radiologic studies. Consideration of Admission/Observation Escalation of care including admission/observation considered. Discussed admission with the patient, patient states that she is strongly desirous of discharge, feels better now. Patient will call to try to get an appointment sooner. Strict return precautions were given to the patient, she will return if she changes her mind regarding admission or if she develops any worsening symptoms.. I considered the following discharge prescriptions or medication management in the emergency department Medications were administered in the Emergency Department. See MAR. Independent interpretation of the following test(s) in the Emergency Department CT Scan: My interpretation is No obstruction seen on interpretation of the CT scan images. Care significantly affected by the following chronic conditions: Chronic Obstructive Pulmonary Disease. Counseling: I had a detailed discussion with the patient and/or guardian regarding: the historical points, exam findings, and any diagnostic results supporting the discharge/admit diagnosis, lab results, radiology results, the need for outpatient follow up, to return to the emergency department if symptoms worsen or persist or if there are any questions or concerns that arise at home. 12/08 10:30 Order name: CBC with Diff; Complete Time: 11:55 rt 12/08 10:30 Order name: CMP; Complete Time: 11: rt 12/08 10:30 Order name: Lipase; Complete Time: 11: rt 12/08 10:30 Order name: Troponin High Sensitivity; Complete Time: 11: rt 12/08 10:30 Order name: Type And Screen; Complete Time: 11: rt 12/08 10:30 Order name: CT Abd/Pelvis - IV Contrast Only; Complete Time: 12:19 rt 12/08 10:30 Order name: EKG; Complete Time: : rt 12/08 10:30 Order name: IV Saline Lock; Complete Time: : rt 12/08 10:30 Order name: Labs collected and sent; Complete Time: 11: rt 12/08 10:30 Order name: EKG - Nurse/Tech; Complete Time: 11: rt EC:11 Rate is 109 beats/min. Rhythm is irregularly irregular, A fib with No ectopy. QRS Beltrami rt is Normal. NH interval is normal. QRS interval is normal. QT interval is normal. No Q waves. Administered Medications: 13:31 Drug: NS 0.9% IV 1000 ml Route: IV; Rate: 1 bolus; Site: right antecubital; ap3 13:32 Drug: Piperacillin-Tazobactam IVPB 3.375 grams Route: IVPB; Infused Over: 60 mins; ap3 Site: right antecubital; 14:43 Follow up: IV Status: Completed infusion ap3 Disposition Summary: 12/08/22 14:57 Discharge Ordered Location: Home rt Problem: new rt Symptoms: have improved rt Condition: Stable rt Diagnosis - Colic rt Followup: rt - With: Private Physician - When: 2 - 3 days - Reason: Discharge Instructions: - Discharge Summary Sheet rt - Colitis rt Forms: - Medication Reconciliation Form rt - Thank You Letter rt - Antibiotic Education rt - Prescription Opioid Use rt Prescriptions: - Augmentin 875-125 mg Oral Tablet - take 1 tablet by ORAL route every 12 hours for 10 days; 20 tablet; Refills: 0, rt Product Selection Permitted Signatures: Dispatcher [employer] Kena Galeano, RN RN iw Sharon Worthy RN RN ap3 Lorenzo Ferrari MD MD rt
--- NOTE | 2022-12-08 14:58 | ER ---
Nurse's Notes [facility] Name: Marisela Sullivan Age: 82 yrs Sex: Female : 1940 Arrival Date: 12/08/2022 Time: 09:48 Bed 17 Private MD: Diagnosis: Colic Presentation: 12/08 10:11 Chief complaint: Patient's son or daughter states: blood and clots in BM since first of iw month, is happening every time she goes, it seems to be getting worse, her GI appt isn;t until , started having stomach pains today. Coronavirus screen: At this time, the client does not indicate any symptoms associated with coronavirus-19. Ebola Screen: Patient negative for fever greater than or equal to 101.5 degrees Fahrenheit, and additional compatible Ebola Virus Disease symptoms Patient denies exposure to infectious person. Patient denies travel to an Ebola-affected area in the 21 days before illness onset. No symptoms or risks identified at this time. Initial Sepsis Screen: Does the patient meet any 2 criteria? No. Patient's initial sepsis screen is negative. Does the patient have a suspected source of infection? No. Patient's initial sepsis screen is negative. Risk Assessment: Do you want to hurt yourself or someone else? Patient reports no desire to harm self or others. Onset of symptoms was November 15, 2022. 10:11 Method Of Arrival: Wheelchair iw 10:11 Acuity: RIYA 3 iw Historical: - Allergies: 10:12 No Known Allergies; iw - Home Meds: 10:12 Advair Diskus 250-50 mcg/dose Inhl dsdv 1 puff 2 times per day [Active]; Eliquis Oral iw daily [Active]; losartan Oral once daily [Active]; Verapamil Oral [Active]; verapamil 240 mg Oral TbER 1 tab twice a day [Active]; zolpidem 10 mg Oral tab 1 tab PRN [Active]; Advair Diskus Inhl [Active]; - PMHx: 10:12 Asthma; COPD; chronic uti; Atrial Fib; GALLSTONES; Hypertension; iw - PSHx: 10:12 hysterectomy; iw - Immunization history:: Adult Immunizations Client reports receiving the 1st dose of the Covid vaccine, Flu vaccine status is unknown. - Social history:: Smoking status: Patient/guardian denies using tobacco, the patient reports quitting approximately 30 years ago. - Family history:: not pertinent. Screenin:10 Abuse screen: Denies threats or abuse. Nutritional screening: No deficits noted. ap3 Tuberculosis screening: No symptoms or risk factors identified. 13:01 [facility] ED Fall Risk Assessment (Adult) History of falling in the last 3 months, ap3 including since admission Yes- fall prone (multiple falls) (3 pts) Confusion or Disorientation No (0 pts) Intoxicated or Sedated No (0 pts) Impaired Gait Yes (1 pt) Mobility Assist Device Used Yes (1 pt) Altered Elimination No (0 pt) Score/Fall Risk Level 3 or more points = High Risk. Assessment: 11:09 General: Appears comfortable, Behavior is calm, cooperative, appropriate for age. Pain: ap3 Complains of pain in abdomen. Neuro: Level of Consciousness is awake, alert, obeys commands, Oriented to person, place, time, situation. Cardiovascular: Patient's skin is warm and dry. Respiratory: Airway is patent Respiratory effort is even, unlabored, Respiratory pattern is regular, symmetrical. GI: Reports lower abdominal pain, upper abdominal pain, bloody stool. 12:36 Reassessment: Patient appears in no apparent distress at this time. Patient and/or vg1 family updated on plan of care and expected duration. Pain level reassessed. Patient is alert, oriented x 3, equal unlabored respirations, skin warm/dry/pink. Assisted pt to restroom via wheelchair. Vital Signs: 10:11 BP 132 / 92; Pulse 97; Resp 16; Temp 97.4; Pulse Ox 98% on R/A; Weight 49.44 kg; Height iw 5 ft. 2 in. ; 11:19 Pulse 73; Pulse Ox 100% ; ap3 12:00 BP 147 / 92; Pulse 100; Resp 17; Pulse Ox 100% on R/A; vg1 13:11 BP 147 / 87; Pulse 103; Pulse Ox 99% on R/A; ap3 14:11 BP 142 / 82; Pulse 99; Pulse Ox 100% on R/A; ap3 10:11 Body Mass Index 19.94 (49.44 kg, 157.48 cm) iw ED Course: 09:49 Patient arrived in ED. rg4 09:57 Lorenzo Ferrari MD is Attending Physician. rt 10:12 Triage completed. iw 10:14 Arm band placed on. iw 10:16 Sharon Worthy, RN is Primary Nurse. ap3 11:08 Initial lab(s) drawn, by me, sent to lab. EKG done, by ED staff, reviewed by Lorenzo Ferrari MD. Inserted saline lock: 20 gauge in right antecubital area, using aseptic technique. Blood collected. 11:10 Patient has correct armband on for positive identification. Bed in low position. Call ap3 light in reach. Side rails up X2. Adult w/ patient. awake overnight monitor on. Pulse ox on. NIBP on. Door closed. Noise minimized. Warm blanket given. 11:48 CT Abd/Pelvis - IV Contrast Only In Process Unspecified. EDMS 14:59 No provider procedures requiring assistance completed. ap3 15:18 IV discontinued, intact, bleeding controlled, No redness/swelling at site. Pressure ap3 dressing applied. Administered Medications: 13:31 Drug: NS 0.9% IV 1000 ml Route: IV; Rate: 1 bolus; Site: right antecubital; ap3 13:32 Drug: Piperacillin-Tazobactam IVPB 3.375 grams Route: IVPB; Infused Over: 60 mins; ap3 Site: right antecubital; 14:43 Follow up: IV Status: Completed infusion ap3 Medication: 11:10 VIS not applicable for this client. ap3 Outcome: 14:57 Discharge ordered by . rt 15:16 Discharged to home via wheelchair, with family. ap3 15:16 Condition: good 15:16 Discharge instructions given to patient, family, Instructed on discharge instructions, follow up and referral plans. medication usage, Demonstrated understanding of instructions, follow-up care, medications, Prescriptions given X 1. 15:18 Patient left the ED. ap3 Signatures: Dispatcher [employer] EDMS Kena Fletcher RN RN iw Garcia, Rubi rg4 Sharon Worthy RN RN ap3 Garcia, Victoria, RN RN vg1 Lorenzo Ferrari MD MD rt
[2022-12-08 15:46] VITALS: TEMP 97.4
[2022-12-08 15:54] VITALS: BP 142/82; O2SAT 100
--- NOTE | 2022-12-09 05:35 | EKG ---
Test Date: 2022-12-08 Test Time: 11:03:40 Superintendent Service: EV MEASUREMENT RESULTS: Intervals: Rate: 109 ND: QRSD: 82 QT: 356 QTc: 479 Dodson: P: ND: QRS: 20 T: 2 INTERPRETIVE STATEMENTS: Atrial fibrillation Nonspecific ST and T wave abnormality, probably digitalis effect Abnormal ECG Compared to ECG 12/28/2021 10:41:18 No significant changes Electronically Signed On 12-09-22 05:33:32 CDT by Peewee Luis
== END 2022-12-08 15:18 | disposition home or self-care (01) ==
LOC: ER 09:48
DX: K52.9 Noninfective gastroenteritis and colitis, unspecified (principal); K92.1 Melena; I10 Essential (primary) hypertension; I48.91 Unspecified atrial fibrillation; Z79.01 Long term (current) use of anticoagulants
CPT/HCPCS: 85025; 36415; 86900; 86850; 86901; 84484; 83690; 80053; 74177; Q9967; J2543; J7030; 93005